=== PATIENT | male | born 1930 | race Caucasian/White ===

== ENCOUNTER 2017-10-27 08:50 | Emergency (ER) | payer MEDICARE, OTHER ==
[2017-10-27 09:30] VITALS: BP 131/66
--- NOTE | 2017-10-27 12:12 | RAD ---
Indication: Cough. 2 views of the chest including dual energy PA views are reviewed and compared to previous exam dated November 07, 2016. No mediastinal shift is noted. Heart is of normal size and configuration. Pacemaker leads are in place. Hyperinflated lung turcios are noted however no pleural fluid, pneumonia or pneumothorax is noted. No significant change is noted since previous exam of November 07, 2016. IMPRESSION: Hyperinflated lung turcios without evidence of active cardiopulmonary disease.
--- NOTE | 2017-10-27 13:40 | UC ---
Estrellita Souza Julia, scribed for Yariel Owens MD on 10/27/17 at 1021 . Respiratory Complaint HPI - HPI Summary HPI Summary: This patient is a 87 year old M presenting to [facility] with a chief complaint of a common cold for the past two weeks that has worsened in the last couple days with a yellowish-green productive cough. Patient c/o chills, without fever. Patient denies CP and SOB. Patient has no other complaints. - History of Current Complaint Chief Complaint: UCRespiratory Stated Complaint: RESP ISSUE Time Seen by Provider: 10/27/17 09:42 Hx Obtained From: Patient Onset/Duration: Lasting Weeks, Worse Since - two days ago Timing: Constant Pain Intensity: 0 Pain Scale Used: 0-10 Numeric Character: Cough: Productive Associated Signs And Symptoms: Positive: Chills. Negative: Fever - Allergies/Home Medications Allergies/Adverse Reactions: Allergies Allergy/AdvReac Type Severity Reaction Status Date / Time Penicillins Allergy Hives Verified 10/27/17 09:30 Home Medications: Home Medications Apixaban* [Eliquis*] 5 mg PO BID 10/27/17 [History Confirmed 10/27/17] PMH/Surg Hx/FS Hx/Imm Hx Cardiovascular History: Cardiac Disease Other History Of: Anticoagulant Therapy - Surgical History Surgical History: Yes Surgery Procedure, Year, and Place: hernia repair, ortho surgery, prostate surgery, pacer, coronary stents - Family History Known Family History: Positive: Hypertension - Social History Alcohol Use: Rare Substance Use Type: None Smoking Status (MU): Former Smoker - Immunization History Most Recent Influenza Vaccination: 2013 Most Recent Tetanus Shot: utd Most Recent Pneumonia Vaccination: unknown Review of Systems Constitutional: Negative - fever, Chills Respiratory: Negative - SOB, Cough Cardiovascular: Negative All Other Systems Reviewed And Are Negative: Yes Physical Exam - Summary Physical Exam Summary: VITAL SIGNS: Reviewed. GENERAL: Patient is a well developed and nourished male who is lying comfortable in the stretcher. Patient is not in any acute respiratory distress. HEAD AND FACE: Normocephalic EYES: PERRLA, EOMI x 2. EARS: Hearing grossly intact. MOUTH: Oropharynx within normal limits. NECK: Supple, trachea is midline, no adenopathy, no JVD, no carotid bruit. CHEST: Symmetric, no tenderness at palpation LUNGS: Coarse breath sounds bilaterally CVS: Regular rate and rhythm, S1 and S2 present, no murmurs or gallops appreciated. ABDOMEN: Soft, non-tender. Bowel sounds are normal. No abdominal abnormal pulsations. EXTREMITIES: Full ROM in all major joints, no edema, no cyanosis or clubbing. NEURO: Alert and oriented x 3. No acute neurological deficits. Speech is normal and follows commands. SKIN: Dry and warm Triage Information Reviewed: Yes Vital Signs: Initial Vital Signs Temp 96.5 F 10/27/17 09:26 Pulse 67 10/27/17 09:26 Resp 20 10/27/17 09:26 BP 131/66 10/27/17 09:26 Pulse Ox 100 10/27/17 09:26 Vital Signs Reviewed: Yes Diagnostic Evaluation - Laboratory O2 Sat by Pulse Oximetry: 100 - Radiology Radiology Interpretation Completed By: ED Physician - CXR - Negative for acute pathology. Respiratory Course/Dx - Course Course Of Treatment: This patient is a 87 year old M presenting to [facility] with a chief complaint of a common cold for the past two weeks that has worsened in the last couple days with a yellowish-green productive cough. Patient c/o chills , without fever. Patient denies CP and SOB. Patient has no other complaints. CXR has no acute pathology. Patient appears to be dealing with bronchitis. Due to age and length of symptoms patient will be placed on Zithromax and Tessalon. Patient will follow up with his PCP.I discussed all the findings and test results with the patient. Plan of care was discussed with the patient, and patient understands and agrees. All questions were answered to patient satisfaction. There were no further complaints or concerns. Patient instructed to return to Urgent Care or ED for worsening or changing symptoms. - Differential Dx/Diagnosis Provider Diagnoses: bronchitis Discharge - Sign-Out/Discharge Documenting (check all that apply): Discharge/Admit/Transfer - Discharge Plan Condition: Stable Disposition: HOME Prescriptions: Azithromyxin ZEN (NF) [Z-Zen (Zithromax) 250 mg tabs #6] 2 tab PO .TODAY, THEN 1 DAILY #6 tab Benzonatate CAP* [Tessalon 100 MG CAP*] 100 mg PO TID #15 cap Patient Education Materials: Acute Bronchitis (ED) Referrals: Monica Inman MD [Primary Care Provider] - Additional Instructions: Take medications as instructed Increase your fluid intake Return to the UC if symptoms worsen - Billing Disposition and Condition Condition: STABLE Disposition: HOME The documentation as recorded by the Estrellita mendoza Julia accurately reflects the service I personally performed and the decisions made by me, Yariel Owens MD.
== END 2017-10-27 10:10 | disposition home or self-care (01) ==
LOC: UCEAST 08:50
DX: J40 Bronchitis, not specified as acute or chronic (principal); Z88.0 Allergy status to penicillin; I51.9 Heart disease, unspecified; Z79.01 Long term (current) use of anticoagulants; Z87.891 Personal history of nicotine dependence
CPT/HCPCS: 71046; 99212; G0463

== ENCOUNTER 2018-02-12 14:54 | Emergency (ER) | payer MEDICARE, OTHER ==
[2018-02-12 15:29] LABS: ABS Basophils 0.1 10^3/ul (0-0.2); ABS Eosinophils 0.1 10^3/ul (0-0.6); ABS Lymphocytes 2.5 10^3/ul (1.0-4.8); ABS Monocytes 0.8 10^3/ul (0-0.8); ABS Neutrophils 4.9 10^3/ul (1.5-7.7); ABS Nucleated RBC 0 10^3/ul; Eosinophil % 1.5 % (0-6); Hematocrit 38 % (42-52); Hemoglobin 13.1 g/dl (14.0-18.0); Lymphocyte % 29.9 % (25-47); Mean Corpuscular HGB Conc 35 g/dl (31-36); Mean Corpuscular Hemoglobin 32 pg (27-31); Mean Corpuscular Volume 92 fL (80-94); Mean Platelet Volume 8.9 um3 (7.4-10.4); Nucleated Red Blood Cells % 0; Platelet Count 204 10^3/ul (150-450); Red Blood Count 4.13 10^6/ul (4.00-5.40); Red Cell Distribution Width 14 % (10.5-15); White Blood Count 8.4 10^3/ul (3.5-10.8)
[2018-02-12 15:37] LABS: INR 1.06 (0.77-1.02)
[2018-02-12 15:46] LABS: EGFR Non-African American 81.2 (>60)
--- OUTSIDE RECORDS SUMMARY | 2018-02-12 15:49 | XMS REPORT ---
:1930 External Reference #:[id number] Author Organization [facility] Address [address] [place] [address] Phone [phone] Care Team Providers Name Role Phone Monica Inman M.D. Primary Care Physician Unavailable Payers Type Date Identification Numbers Payment Provider Subscriber Medicare Primary Policy Number: [id number] Medicare-[facility] Gov[employer] Kwan Guerra PayID: [id number] [address] [facility] [place] [id number] [place] [address] [address] Policy Number: [id number] [facility] [place] Kwan Guerra Group Number: [id number] DO Not Use-Use #36 PayID: [id number] [place] [address] Problems Date Description Provider Status Onset: 03/12/2008 Essential hypertension Joe Rodriguez M.D. Active Family History Date Family Member(s) Problem(s) Comments General Cancer General Hearing Loss General Heart Attack General Heart Disease General Thyroid Disease General Cardiomyopathy General Diabetes Social History Type Date Description Comments Occupation Retired Cigarette Use Never smoked cigarettes Cigars Does not smoke cigars Pipe Does not smoke a pipe Smokeless Tobacco Does not use smokeless tobacco Alcohol Rarely drinks alcohol Smoking Patient has never smoked Allergies, Adverse Reactions, Alerts Date Description Reaction Status Severity Comments 08/01/2004 Penicillin active Medications Medication Date Status Form Strength Qnty SIG Indications Ordering Provider Lipitor Active Tablets 80mg as Unknown 000 directed Proscar Active Tablets 5mg as Unknown 000 directed Diovan Active Tablets as Unknown 000 directed Baby Aspirin Active Chewtabs 81mg as Unknown 000 directed Calcium Active Tablets as Unknown 000 directed Glipizide-Metfo Active Tablets 5-500mg tid Unknown rmin HCL [address] 5mg daily Unknown Sodium 000 Clopidogrel Active Tablets daily Unknown Bisulfate 000 Diltiazem HCL Active Tablets bid Unknown 000 Multiple Active Tablets daily Unknown Vitamins 000 Metamucil Active Powder as Unknown 000 directed Preservision Active Capsules Areds 2 bid Unknown Areds 2 000 Eliquis Active Tablets 5mg bid Unknown 000 Metformin HCL Hx Tablets 1000mg Unknown 000 - 018 Zetia Hx Tablets 10mg Unknown 000 - 018 Nexium Hx Capsules Unknown 000 - DR 018 Vitamin E Hx Liquid Unknown Acetate 000 - 018 Vital Signs Date Vital Result Comment 01/23/2018 Weight 168.00 lb Weight in kg's 76.205 Height 68 inches 5'8" Height in cm's 172.7 cm BMI (Body Mass Index) 25.5 kg/m2 03/12/2008 BP Systolic 148 mmHg BP Diastolic 87 mmHg Heart Rate 45 /min Respiratory Rate 16 /min Results Description No Information Procedures Date CPT Code Description Status 01/23/2018 08123 Removal Wax Impaction Completed 03/12/2008 88438 Removal Wax Impaction Completed 08/01/2004 40430 Comprehensive Audiogram Completed 09/21/2003 16011 Comprehensive Audiogram Completed Encounters Type Date Location Provider CPT E/M Dx Office Visit 03/12/2008 11:30a [place] 06/18/07 Joe Rodriguez, [address] 380.4 [place] 389.10 784.0 401.9 Plan of Care 01/23/2018 - Joe Rodriguez M.D.H61.23 Impacted cerumen, bilateralComments:The patient's cerumen impaction was cleaned without difficulty.Follow up:FU as needed
--- OUTSIDE RECORDS SUMMARY | 2018-02-12 15:49 | XMS REPORT ---
:1930 External Reference #:[id number] Author Organization [facility] [place] Address [address] [place] [address] [place] [address] Phone [phone] Care Team Providers Name Role Phone Monica Inman MD Primary Care Physician Unavailable Payers Type Date Identification Numbers Payment Provider Subscriber Medicare Primary Policy Number: [id number] Medicare Abhilash Guerra PayID: [id number] [address] [place] [address] Medigap Part B Policy Number: [id number] [employer] Abhilash Guerra Group Number: [id number] [address] PayID: [id number] [place] [address] Problems Date Description Provider Status Onset: 05/29/2013 Ischemic heart disease Canelo Goetz M.D., Active FACC, FASNC Onset: 05/19/2014 Postoperative Wound Closure Monty Balderas M.D., FACC, Active Encounter FSCAI Onset: 10/21/2014 Disturbance in sleep behavior Nancy Sididqui MD Active Onset: 10/21/2014 Coronary arteriosclerosis Nancy Siddiqui MD Active Onset: 10/21/2014 Cardiac pacemaker in situ Nancy Siddiqui MD Active Onset: 10/21/2014 Hypoxemia Nancy Siddiqui MD Active Onset: 11/25/2014 Difficulty breathing Nancy Siddiqui MD Active Onset: 01/07/2015 Obstructive sleep apnea syndrome Nancy Siddiqui MD Active Family History Date Family Member(s) Problem(s) Comments General Diabetes General Heart Disease General Hypertension General Cancer Siblings 2 1 Cad 1 05/2016 after head trauma age 74 Social History Type Date Description Comments Marital Status 2016 Lives With Alone Occupation Retired ETOH Use Occasionally consumes alcohol Smoking off and on smoker but never steady for a few years Recreational Drug Use Denies Drug Use Smoking Patient is a former smoker Daily Caffeine 1 1/2 cup of coffee Exercise Type/Frequency Exercises regularly Allergies, Adverse Reactions, Alerts Date Description Reaction Status Severity Comments 05/29/2013 Penicillin rash active 10/08/2014 Erythromycin inactive Medications Medication Date Status Form Strength Qnty SIG Indications Ordering Provider Diltiazem CD 10/08/ Active Caps ER 120mg 180cap 1 by mouth Umberto 2018 24HR s twice a day. Anitha Ortiz M.D. Eliquis 03/01/ Active Tablets 5mg 180tab 1 by mouth I48.0 Umberto 2016 s twice a day Anitha Ortiz M.D. Pantoprazole 09/23/ Active Tablets 20mg 90tabs 1/2 tab by Umberto Sodium 2015 DR mouth every F. day Radha Ortiz Metoprolol 09/07/ Active Tablets 25mg 90tabs 1/2 by mouth Umberto Tartrate 2016 once a day Anitha Ortiz M.D. Magnesium 08/29/ Active Tablets 250mg 90tabs 1 by mouth Umberto Oxide 2014 every day Anitha Ortiz M.D. Glyburide/Metf / Active Tablets 5-500mg 180tab take 1 Unknown ormin HCL 0000 s tablet by mouth three times per day Finasteride / Active Tablets 5mg 90tabs 1 po qd Unknown 0000 Multivitamin / Active 1 tab po qd Unknown 0000 Calcium 600 + / Active Tablets 600-400mg- 60tabs 1 po qd Unknown D 0000 Unit Psyllium / Active Powder 58.6% 3.4 g in a Unknown 0000 glass of water by mouth every day prn Preservision / Active Tablets 1 tab by Unknown Areds 0000 mouth twice daily Clopidogrel / Active Tablets 75mg 90tabs take 1 Umberto Bisulfate 0000 tablet by F. mouth every Mauser, day MStarDStar Atorvastatin / Active Tablets 40mg 45tabs take 1 Umberto Calcium 0000 tablet by F. mouth every Mauser, day MStarSue Metoprolol 10/08/ Hx Tablets 25mg 2 tabs po in Umberto Tartrate 2014 - am 1 tab po 10/08/ in pm , 2014 Radha Metoprolol 10/08/ Hx Tablets 25mg 200tab 1 by mouth Umberto Tartrate 2014 - s twice a day . , 2015 Radha Metoprolol 08/31/ Hx Tablets 25mg 60tabs 1 by mouth Umberto Succinate ER 2014 - ER 24HR twice a day . , 2014 Radha Diovan 05/27/ Hx Tablets 40mg 100tab 1 by mouth Umberto 2013 - s every day . , 2014 Radha Dilt-CD 05/27/ Hx Caps ER 120mg 180cap take 1 Umberto 2013 - 24HR s capsule by . 10/08/ mouth twice , 2017 a day Radha Pantoprazole 05/19/ Hx Tablets 40mg 90tabs 1 by mouth Umberto Sodium 2013 - DR every day , 2015 Radha Isosorbide 12/11/ Hx Tablets 60mg 135tab 1 1/2 tabs Canelo Mononitrate ER 2012 - ER 24HR s by mouth Kareem 05/18/ every day Dasha Goetz M.D., FACC, WAN Metoprolol 08/12/ Hx Tablets 25mg 180tab 2 tabs in Umberto Succinate ER 2012 - ER 24HR s the am and 1 F. 08/31/ tab in the , 2014 pm Radha Diovan 08/12/ Hx Tablets 320mg 90tabs 1 tab by Canelo 2013 - mouth every Serna 05/18/ day Dasha Goetz M.D., FACC, WAN Metformin HCL / Hx Tablets 500mg 1 po bid Unknown 0000 - 2012 Atorvastatin / Hx Tablets 20mg 90tabs take 1 Unknown Calcium 0000 - tablet at 05/18/ bedtime 2013 Zetia / Hx Tablets 10mg 90tabs 1 po qd Unknown 0000 - 2013 Warfarin / Hx Tablets 1mg 60tabs 5 tabs take Unknown Sodium 0000 - as directed 2013 Oxybutynin 00/ Hx Tablets 5mg 1 po qd Unknown Chloride 0000 - 2015 Aspirin Ec / Hx Tablets 81mg 90tabs 1 tablet Unknown Lo-Dose 0000 - DR daily ue 2017 9.14.17 Isosorbide 00/ Hx Tablets 30mg 270tab 1 by mouth Umberto Mononitrate ER 0000 - ER 24HR s every day F. Diana 2014 Radha Diovan / Hx Tablets 1 by mouth Unknown 0000 - every day 2013 Metamucil / Hx daily Unknown 0000 - 2014 Pepcid / Hx Tablets 20mg 90tabs 1 by mouth Unknown 0000 - every day 2013 Yi Herbs / Hx 1 pack a day Unknown 0000 - 2014 Valsartan / Hx Tablets 40mg 1 by mouth Unknown 0000 - every day 2014 Vitamin B-12 / Hx Tablets 500mcg 1 by mouth Unknown 0000 - Sub every day 2016 Medications Administered in Office Medication Date Status Form Strength Qnty SIG Indications Ordering Provider Inj, Administered Injection Lit Rogers Regadenoson, 017 Radha Martinez 0.1 MG Technetium TC Administered Injection Lit Rogers 99M 017 Radha Martinez Tetrofosmin, Per Unit Dose Up To 40 Millicuries Technetium TC Administered Injection Lit Rogers 99M 016 Radha Martinez Tetrofosmin, Per Unit Dose Up To 40 Millicuries Technetium TC Administered Injection Anne Ramirez, 99M 016 PA Tetrofosmin, Per Unit Dose Up To 40 Millicuries Vital Signs Date Vital Result Comment 02/12/2018 Height 68 inches 5'8" Weight 168.00 lb Heart Rate 80 /min BP Systolic Sitting 122 mmHg lue reg cuff BP Diastolic Sitting 60 mmHg lue reg cuff Respiratory Rate 16 /min BMI (Body Mass Index) 25.5 kg/m2 Ejection Fraction 60-65% 11/27/2016 echo 01/01/2018 Height 68 inches 5'8" Weight 163.00 lb Heart Rate 72 /min BP Systolic Sitting 108 mmHg Lue reg cuff BP Diastolic Sitting 66 mmHg Lue reg cuff Respiratory Rate 22 /min O2 % BldC Oximetry 98 % On Ra BMI (Body Mass Index) 24.8 kg/m2 11/06/2017 Height 68 inches 5'8" Weight 166.00 lb Heart Rate 84 /min BP Systolic Sitting 110 mmHg lue reg cuff BP Diastolic Sitting 62 mmHg lue reg cuff BP Systolic Standing 118 mmHg lue reg cuff BP Diastolic Standing 60 mmHg lue reg cuff Respiratory Rate 16 /min BMI (Body Mass Index) 25.2 kg/m2 Ejection Fraction 60-65% 11/27/2016 echo 10/08/2017 Height 68 inches 5'8" Weight 161.00 lb no shoes Heart Rate 88 /min BP Systolic Sitting 120 mmHg L/A Reg cuff BP Diastolic Sitting 70 mmHg L/A Reg cuff BMI (Body Mass Index) 24.5 kg/m2 07/25/2017 Height 68 inches 5'8" Weight 163.00 lb with shoes Heart Rate 80 /min BP Systolic 148 mmHg L/Arm Reg Cuff BP Diastolic 80 mmHg L/Arm Reg Cuff BMI (Body Mass Index) 24.8 kg/m2 Ejection Fraction 60-65%Ech0 03/01/2017 Height 68 inches 5'8" Weight 166.00 lb with shoes Heart Rate 72 /min BP Systolic Sitting 144 mmHg lue reg cuff BP Diastolic Sitting 70 mmHg lue reg cuff BP Systolic Standing 136 mmHg la repeat sitting BP Diastolic Standing 78 mmHg la repeat sitting Respiratory Rate 18 /min BMI (Body Mass Index) 25.2 kg/m2 Ejection Fraction 60-65% echo 11/27/16 12/01/2016 Height 68 inches 5'8" Weight 164.00 lb with shoes Heart Rate 78 /min BP Systolic Sitting 120 mmHg Ra reg cuff BP Diastolic Sitting 76 mmHg Ra reg cuff BMI (Body Mass Index) 24.9 kg/m2 Ejection Fraction 60% - 65% echo 07/30/16 10/23/2016 Height 68 inches 5'8" Weight 167.00 lb with shoes Heart Rate 62 /min BP Systolic Sitting 134 mmHg LA reg cuff BP Diastolic Sitting 72 mmHg LA reg cuff BMI (Body Mass Index) 25.4 kg/m2 Ejection Fraction 55% - 60% echo 04/23/14 10/11/2016 Height 68 inches 5'8" Weight 165.00 lb Heart Rate 63 /min BP Systolic Sitting 130 mmHg BP Diastolic Sitting 72 mmHg Respiratory Rate 14 /min O2 % BldC Oximetry 97 % BMI (Body Mass Index) 25.1 kg/m2 03/08/2016 Height 68 inches 5'8" Weight 169.00 lb w/shoes Heart Rate 62 /min BP Systolic Sitting 138 mmHg LA reg cuff BP Diastolic Sitting 68 mmHg LA reg cuff BMI (Body Mass Index) 25.7 kg/m2 Ejection Fraction 56% Nem 09/24/15 09/28/2015 Height 68 inches 5'8" Weight 173.00 lb with sandals Heart Rate 60 /min BP Systolic 128 mmHg LA reg cuff BP Diastolic 80 mmHg LA reg cuff BP Systolic Sitting 122 mmHg LA reg cuff BP Diastolic Sitting 70 mmHg LA reg cuff Respiratory Rate 16 /min BMI (Body Mass Index) 26.3 kg/m2 Ejection Fraction 55-60% date 04/23/14 ECHO 09/08/2015 Height 68 inches 5'8" Weight 171.00 lb with shoes Heart Rate 62 /min BP Systolic Sitting 128 mmHg LA reg cuff BP Diastolic Sitting 68 mmHg LA reg cuff Respiratory Rate 16 /min BMI (Body Mass Index) 26.0 kg/m2 06/25/2015 Height 68 inches 5'8" Weight 170.00 lb Heart Rate 60 /min BP Systolic Sitting 122 mmHg BP Diastolic Sitting 64 mmHg Respiratory Rate 16 /min O2 % BldC Oximetry 97 % BMI (Body Mass Index) 25.8 kg/m2 03/15/2015 Height 68 inches 5'8" BP Systolic 125 mmHg LA home cuff smart BP Diastolic 78 mmHg LA home cuff smart BP Systolic Sitting 120 mmHg Ra cuff BP Diastolic Sitting 60 mmHg Ra cuff 03/15/2015 Height 68 inches 5'8" Heart Rate 62 /min BP Systolic 120 mmHg LA reg cuff BP Diastolic 60 mmHg LA reg cuff BP Systolic Sitting 130 mmHg LA Omron BP Diastolic Sitting 76 mmHg LA Omron 03/11/2015 Height 68 inches 5'8" Weight 173.00 lb Heart Rate 64 /min BP Systolic Sitting 132 mmHg LA reg cuff BP Diastolic Sitting 68 mmHg LA reg cuff BP Systolic Standing 121 mmHg repeat la BP Diastolic Standing 62 mmHg repeat la BMI (Body Mass Index) 26.3 kg/m2 Ejection Fraction 55 stress echo 07/14/14 03/08/2015 Heart Rate 60 /min BP Systolic Sitting 124 mmHg BP Diastolic Sitting 60 mmHg Respiratory Rate 18 /min O2 % BldC Oximetry 96 % 01/07/2015 Height 68.5 inches 5'8.50" Weight 169.00 lb Heart Rate 62 /min BP Systolic 128 mmHg BP Diastolic 72 mmHg Respiratory Rate 14 /min O2 % BldC Oximetry 98 % BMI (Body Mass Index) 25.3 kg/m2 10/21/2014 Height 68.5 inches 5'8.50" Weight 172.00 lb Heart Rate 61 /min BP Systolic Sitting 120 mmHg BP Diastolic Sitting 74 mmHg Body Temperature 97.2 F O2 % BldC Oximetry 97 % BMI (Body Mass Index) 25.8 kg/m2 Neck Circumference in inches 15 10/08/2014 Height 68.5 inches 5'8.50" Weight 169.75 lb w/o shoes Heart Rate 60 /min BP Systolic Sitting 142 mmHg LA reg cuff BP Diastolic Sitting 70 mmHg LA reg cuff Respiratory Rate 14 /min BMI (Body Mass Index) 25.4 kg/m2 Ejection Fraction 55-60 04/23/14 echo 09/03/2014 Height 68.5 inches 5'8.50" Heart Rate 60 /min BP Systolic Sitting 138 mmHg lA reg cuff BP Diastolic Sitting 78 mmHg lA reg cuff Respiratory Rate 14 /min 08/31/2014 Height 68.5 inches 5'8.50" Weight 174.50 lb Heart Rate 62 /min BP Systolic 140 mmHg LA Reg BP Diastolic 72 mmHg LA Reg BMI (Body Mass Index) 26.1 kg/m2 07/29/2014 Height 68.5 inches 5'8.50" Weight 177.25 lb with shoes Heart Rate 60 /min BP Systolic Sitting 132 mmHg LA reg cuff BP Diastolic Sitting 66 mmHg LA reg cuff BP Systolic Recheck 113 mmHg pt hm bp monitor BP Diastolic Recheck 70 mmHg pt hm bp monitor BMI (Body Mass Index) 26.6 kg/m2 07/14/2014 Heart Rate 60 /min BP Systolic Sitting 134 mmHg BP Diastolic Sitting 82 mmHg 05/27/2014 Height 69 inches 5'9" Weight 179.38 lb Heart Rate 64 /min BP Systolic Standing 138 mmHg LA, reg BP Diastolic Standing 84 mmHg LA, reg BMI (Body Mass Index) 26.5 kg/m2 05/19/2014 Height 69 inches 5'9" Weight 182.00 lb Heart Rate 64 /min 64 BP Systolic Sitting 122 mmHg right arm, reg cuff BP Diastolic Sitting 64 mmHg right arm, reg cuff BP Systolic Standing 116 mmHg right arm, reg cuff BP Diastolic Standing 64 mmHg right arm, reg cuff Respiratory Rate 20 /min BMI (Body Mass Index) 26.9 kg/m2 05/01/2014 Height 69 inches 5'9" Weight 183.75 lb w/shoes Heart Rate 64 /min BP Systolic Sitting 112 mmHg LA reg cuff BP Diastolic Sitting 58 mmHg LA reg cuff Respiratory Rate 12 /min BMI (Body Mass Index) 27.1 kg/m2 05/29/2013 Height 69 inches 5'9" Weight 181.31 lb with shoes Heart Rate 6062 /min sit and stand HR reg cuff BP Systolic Sitting 138 mmHg L arm reg cuff BP Diastolic Sitting 74 mmHg L arm reg cuff BP Systolic Standing 134 mmHg L arm reg cuff BP Diastolic Standing 70 mmHg L arm reg cuff Respiratory Rate 17 /min BMI (Body Mass Index) 26.8 kg/m2 Results Test Date Test Result H/L Range Note CBC Auto Diff 11/06/2017 White Blood Count 6.7 10^3/uL 3.5-10.8 Red Blood Count 4.40 10^6/uL 4.0-5.4 Hemoglobin 13.8 g/dL Low 14.0-18.0 Hematocrit 41 % Low 42-52 Mean Corpuscular Volume 93 fL 80-94 Mean Corpuscular Hemoglobin 31 pg 27-31 Mean Corpuscular HGB Conc 34 g/dL 31-36 Red Cell Distribution Width 14 % 10.5-15 Platelet Count 198 10^3/uL 150-450 Mean Platelet Volume 9.3 um3 7.4-10.4 Abs Neutrophils 3.7 10^3/uL 1.5-7.7 Abs Lymphocytes 2.2 10^3/uL 1.0-4.8 Abs Monocytes 0.7 10^3/uL 0-0.8 Abs Eosinophils 0.1 10^3/uL 0-0.6 Abs Basophils 0 10^3/uL 0-0.2 Abs Nucleated RBC 0 10^3/uL Granulocyte % 54.6 % 38-83 Lymphocyte % 32.5 % 25-47 Monocyte % 10.5 % High 0-7 Eosinophil % 1.7 % 0-6 Basophil % 0.7 % 0-2 Nucleated Red Blood Cells % 0 Lipid Panel - [facility] 11/06/2017 Creatine Kinase(CK) 39 U/L 10-223 Comp Metabolic Panel 11/06/2017 Sodium 139 mmol/L 139-145 Potassium 4.2 mmol/L 3.5-5.0 Chloride 101 mmol/L 101-111 Co2 Carbon Dioxide 29 mmol/L 22-32 Anion Gap 9 mmol/L 2-11 Glucose 136 mg/dL High 70-100 Blood Urea Nitrogen 13 mg/dL 6-24 Creatinine 0.83 mg/dL 0.67-1.17 BUN/Creatinine Ratio 15.7 8-20 Calcium 9.2 mg/dL 8.6-10.3 Total Protein 6.6 g/dL 6.4-8.9 Albumin 4.4 g/dL 3.2-5.2 Globulin 2.2 g/dL 2-4 Albumin/Globulin Ratio 2.0 1-3 Total Bilirubin 0.60 mg/dL 0.2-1.0 Alkaline Phosphatase 60 U/L 34-104 Alt 18 U/L 7-52 Ast 15 U/L 13-39 Egfr Non- 88.1 >60 Egfr 113.2 >60 1 Lipid Profile (Trig/Chol/HDL) 11/06/2017 Triglycerides 144 mg/dL 2 Cholesterol 150 mg/dL 3 HDL Cholesterol 43.4 mg/dL 4 LDL Cholesterol 78 mg/dL 5 Lipid Profile (Trig/Chol/HDL) 03/05/2017 Triglycerides 103 mg/dL 6 Cholesterol 203 mg/dL 7 HDL Cholesterol 58.5 mg/dL 8 LDL Cholesterol 124 mg/dL 9 CBC Auto Diff 03/05/2017 White Blood Count 7.2 10^3/uL 3.5-10.8 Red Blood Count 4.49 10^6/uL 4.0-5.4 Hemoglobin 14.0 g/dL 14.0-18.0 Hematocrit 42 % 42-52 Mean Corpuscular Volume 93 fL 80-94 Mean Corpuscular Hemoglobin 31 pg 27-31 Mean Corpuscular HGB Conc 34 g/dL 31-36 Red Cell Distribution Width 14 % 10.5-15 Platelet Count 167 10^3/uL 150-450 Mean Platelet Volume 9 um3 7.4-10.4 Abs Neutrophils 4.5 10^3/uL 1.5-7.7 Abs Lymphocytes 1.8 10^3/uL 1.0-4.8 Abs Monocytes 0.7 10^3/uL 0-0.8 Abs Eosinophils 0.1 10^3/uL 0-0.6 Abs Basophils 0.1 10^3/uL 0-0.2 Abs Nucleated RBC 0 10^3/uL Granulocyte % 63.2 % 38-83 Lymphocyte % 24.8 % Low 25-47 Monocyte % 9.2 % High 1-9 Eosinophil % 1.9 % 0-6 Basophil % 0.9 % 0-2 Nucleated Red Blood Cells % 0 Laboratory test finding 03/05/2017 Magnesium 1.9 mg/dL 1.9-2.7 Creatine Kinase(CK) 48 U/L 10-223 Comp Metabolic Panel 03/05/2017 Sodium 136 mmol/L 133-145 Potassium 4.4 mmol/L 3.5-5.0 Chloride 97 mmol/L Low 101-111 Co2 Carbon Dioxide 31 mmol/L 22-32 Anion Gap 8 mmol/L 2-11 Glucose 210 mg/dL High 70-100 Blood Urea Nitrogen 18 mg/dL 6-24 Creatinine 0.89 mg/dL 0.67-1.17 BUN/Creatinine Ratio 20.2 High 8-20 Calcium 9.8 mg/dL 8.6-10.3 Total Protein 7.3 g/dL 6.4-8.9 Albumin 4.7 g/dL 3.2-5.2 Globulin 2.6 g/dL 2-4 Albumin/Globulin Ratio 1.8 1-3 Total Bilirubin 0.70 mg/dL 0.2-1.0 Alkaline Phosphatase 60 U/L 34-104 Alt 20 U/L 7-52 Ast 18 U/L 13-39 Egfr Non- 81.4 >60 Egfr 104.7 >60 10 Laboratory test finding 03/05/2017 TSH (Thyroid Stim Horm) 3.83 mcIU/mL 0.34-5.60 Basic Metabolic Panel 12/15/2016 Sodium 136 mmol/L 133-145 Potassium 4.4 mmol/L 3.5-5.0 Chloride 101 mmol/L 101-111 Co2 Carbon Dioxide 26 mmol/L 22-32 Anion Gap 9 mmol/L 2-11 Glucose 99 mg/dL 70-100 Blood Urea Nitrogen 18 mg/dL 6-24 Creatinine 0.84 mg/dL 0.67-1.17 BUN/Creatinine Ratio 21.4 High 8-20 Calcium 9.7 mg/dL 8.6-10.3 Egfr Non- 87.1 >60 Egfr 112.0 >60 11 Liver Function Panel 11/16/2016 Total Protein 6.5 g/dL 6.4-8.9 Albumin 4.0 g/dL 3.2-5.2 Globulin 2.5 g/dL 2-4 Albumin/Globulin Ratio 1.6 1-3 Total Bilirubin 0.70 mg/dL 0.2-1.0 Direct Bilirubin 0.10 mg/dL 0.03-0.18 Indirect Bilirubin 0.6 mg/dL 0.3-1.0 Alkaline Phosphatase 83 U/L 34-104 Alt 17 U/L 7-52 Ast 15 U/L 13-39 Urine Microalbumin Random 11/16/2016 Urine Creatinine 84.70 mg/dL Ur Microalbumin (mg/L) 21.8 mg/L Urine Microalbumin/Creatinine 25.7 ug/mg <31 CBC Auto Diff 11/16/2016 White Blood Count 8.8 10^3/uL 3.5-10.8 Red Blood Count 4.41 10^6/uL 4.0-5.4 Hemoglobin 13.4 g/dL Low 14.0-18.0 Hematocrit 39 % Low 42-52 Mean Corpuscular Volume 89 fL 80-94 Mean Corpuscular Hemoglobin 30 pg 27-31 Mean Corpuscular HGB Conc 34 g/dL 31-36 Red Cell Distribution Width 13 % 10.5-15 Platelet Count 256 10^3/uL 150-450 Mean Platelet Volume 9 um3 7.4-10.4 Abs Neutrophils 5.8 10^3/uL 1.5-7.7 Abs Lymphocytes 2.0 10^3/uL 1.0-4.8 Abs Monocytes 0.7 10^3/uL 0-0.8 Abs Eosinophils 0.2 10^3/uL 0-0.6 Abs Basophils 0.1 10^3/uL 0-0.2 Abs Nucleated RBC 0.02 10^3/uL Granulocyte % 65.8 % 38-83 Lymphocyte % 22.7 % Low 25-47 Monocyte % 7.9 % 1-9 Eosinophil % 2.2 % 0-6 Basophil % 1.4 % 0-2 Nucleated Red Blood Cells % 0.3 Lipid Panel - [facility] 11/16/2016 Creatine Kinase(CK) 31 U/L 10-223 Comp Metabolic Panel 11/16/2016 Sodium 130 mmol/L Low 133-145 Potassium 4.3 mmol/L 3.5-5.0 Chloride 96 mmol/L Low 101-111 Co2 Carbon Dioxide 26 mmol/L 22-32 Anion Gap 8 mmol/L 2-11 Glucose 235 mg/dL High 70-100 Blood Urea Nitrogen 11 mg/dL 6-24 Creatinine 0.79 mg/dL 0.67-1.17 BUN/Creatinine Ratio 13.9 8-20 Calcium 9.4 mg/dL 8.6-10.3 Total Protein 6.5 g/dL 6.4-8.9 Albumin 4.0 g/dL 3.2-5.2 Globulin 2.5 g/dL 2-4 Albumin/Globulin Ratio 1.6 1-3 Total Bilirubin 0.70 mg/dL 0.2-1.0 Alkaline Phosphatase 81 U/L 34-104 Alt 16 U/L 7-52 Ast 14 U/L 13-39 Egfr Non- 93.4 >60 Egfr 120.2 >60 12 Laboratory test finding 11/16/2016 B-Type Natriuretic 143 pg/mL High 13 Peptide BNP Vitamin B12 And Folate 11/16/2016 Vitamin B12 1136 pg/mL High 180-914 14 Serum Folic Acid (Folate) > 20.00 ng/mL >3.99 Laboratory test 11/16/2016 TSH (Thyroid Stim Horm) 3.58 mcIU/mL 0.34- 5.60 finding Lipid Profile 11/16/2016 Triglycerides 123 mg/dL 15 (Trig/Chol/HDL) Cholesterol 152 mg/dL 16 HDL Cholesterol 35.6 mg/dL 17 LDL Cholesterol 92 mg/dL 18 Lipid Panel - [facility] 03/02/2016 Creatine Kinase 40 U/L 10-223 19, 20 Comp Metabolic Panel 03/02/2016 Sodium 137 mmol/L 133-145 19 Potassium 4.2 mmol/L 3.5-5.0 19 Chloride 101 mmol/L 101-111 19 Co2 Carbon Dioxide 30 mmol/L 22-32 19 Anion Gap 6 mmol/L 2-11 19 Glucose 165 mg/dL High 70-100 19 Blood Urea Nitrogen 15 mg/dL 6-24 19 Creatinine 0.84 mg/dL 0.67-1.17 19 BUN/Creatinine Ratio 17.9 8-20 19 Calcium 9.1 mg/dL 8.6-10.3 19 Total Protein 6.4 g/dL 6.4-8.9 19 Albumin 4.1 g/dL 3.2-5.2 19 Globulin 2.3 g/dL 2-4 19 Albumin/Globulin Ratio 1.8 1-3 19 Total Bilirubin 0.50 mg/dL 0.2-1.0 19 Alkaline Phosphatase 74 U/L 34-104 19 Alt 20 U/L 7-52 19 Ast 17 U/L 13-39 19 Egfr Non- 87.3 >60 19 Egfr 112.2 >60 19, 21 Lipid Profile (Trig/Chol/HDL) 03/02/2016 Triglycerides 162 mg/dL 19, 22 Cholesterol 182 mg/dL 19, 23 HDL Cholesterol 46.2 mg/dL 19, 24 LDL Cholesterol 103 mg/dL 19, 25 Laboratory test finding 09/14/2015 B-Type Natriuretic Peptide 98 pg/mL 26 BNP Lipid Panel - [facility] 09/14/2015 Creatine Kinase(CK) 44 U/L 10-223 Comp Metabolic Panel 09/14/2015 Sodium 136 mmol/L 133-145 Potassium 4.2 mmol/L 3.5-5.0 Chloride 100 mmol/L Low 101-111 Co2 Carbon Dioxide 30 mmol/L 22-32 Anion Gap 6 mmol/L 2-11 Glucose 151 mg/dL High 70-100 Blood Urea Nitrogen 15 mg/dL 6-24 Creatinine 0.90 mg/dL 0.67-1.17 BUN/Creatinine Ratio 16.7 8-20 Calcium 9.2 mg/dL 8.6-10.3 Total Protein 6.5 g/dL 6.4-8.9 Albumin 4.4 g/dL 3.2-5.2 Globulin 2.1 g/dL 2-4 Albumin/Globulin Ratio 2.1 1-3 Total Bilirubin 0.50 mg/dL 0.2-1.0 Alkaline Phosphatase 60 U/L 34-104 Alt 16 U/L 7-52 Ast 17 U/L 13-39 Egfr Non- 80.6 >60 Egfr 103.6 >60 27 Lipid Profile (Trig/Chol/HDL) 09/14/2015 Triglycerides 129 mg/dL 28 Cholesterol 177 mg/dL 29 HDL Cholesterol 43.5 mg/dL 30 LDL Cholesterol 108 mg/dL 31 CBC Auto Diff 09/14/2015 White Blood Count 8.1 10^3/uL 3.5-10.8 Red Blood Count 4.26 10^6/uL 4.0-5.4 Hemoglobin 13.4 g/dL Low 14.0-18.0 Hematocrit 39 % Low 42-52 Mean Corpuscular Volume 92 fL 80-94 Mean Corpuscular Hemoglobin 31 pg 27-31 Mean Corpuscular HGB Conc 34 g/dL 31-36 Red Cell Distribution Width 14 % 10.5-15 Platelet Count 174 10^3/uL 150-450 Mean Platelet Volume 10 um3 7.4-10.4 Abs Neutrophils 5.4 10^3/uL 1.5-7.7 Abs Lymphocytes 1.9 10^3/uL 1.0-4.8 Abs Monocytes 0.7 10^3/uL 0-0.8 Abs Eosinophils 0.2 10^3/uL 0-0.6 Abs Basophils 0 10^3/uL 0-0.2 Abs Nucleated RBC 0 10^3/uL Granulocyte % 65.8 % 38-83 Lymphocyte % 23.3 % Low 25-47 Monocyte % 8.5 % 1-9 Eosinophil % 1.9 % 0-6 Basophil % 0.5 % 0-2 Nucleated Red Blood Cells % 0 Laboratory test finding 08/25/2014 Magnesium 1.8 mg/dL Low 1.9-2.7 TSH (Thyroid Stimulating Horm) 3.31 IU/mL 0.34-5.60 CBC Auto Diff 08/25/2014 White Blood Count 7.4 10^3/uL 4.8-10.8 Red Blood Count 4.41 10^6/uL 4.0-5.4 Hemoglobin 14.3 g/dL 14.0-18.0 Hematocrit 41 % Low 42-52 Mean Corpuscular Volume 93 fL 80-94 Mean Corpuscular Hemoglobin 32 pg High 27-31 Mean Corpuscular HGB Conc 35 g/dL 31-36 Red Cell Distribution Width 14 % 10.5-15 Platelet Count 201 10^3/uL 150-450 Mean Platelet Volume 10 um3 7.4-10.4 Abs Neutrophils 4.7 10^3/uL 1.5-7.7 Abs Lymphocytes 1.9 10^3/uL 1.0-4.8 Abs Monocytes 0.6 10^3/uL 0-0.8 Abs Eosinophils 0.1 10^3/uL 0-0.6 Abs Basophils 0.1 10^3/uL 0-0.2 Abs Nucleated RBC 0.01 10^3/uL Granulocyte % 63.4 % 38-83 Lymphocyte % 26.2 % 25-47 Monocyte % 8.3 % 1-9 Eosinophil % 1.4 % 0-6 Basophil % 0.7 % 0-2 Nucleated Red Blood Cells % 0.2 Comp Metabolic Panel 08/25/2014 Sodium 136 mmol/L 133-145 Potassium 4.7 mmol/L 3.5-5.0 Chloride 99 mmol/L Low 101-111 Co2 Carbon Dioxide 31 mmol/L 22-32 Anion Gap 6 mmol/L 2-11 Glucose 211 mg/dL High 70-100 Blood Urea Nitrogen 15 mg/dL 6-24 Creatinine 1.00 mg/dL 0.67-1.17 BUN/Creatinine Ratio 15.0 8-20 Calcium 10.0 mg/dL 8.6-10.3 Total Protein 7.0 g/dL 6.4-8.9 Albumin 4.6 g/dL 3.2-5.2 Globulin 2.4 g/dL 2-4 Albumin/Globulin Ratio 1.9 1-3 Total Bilirubin 0.60 mg/dL 0.2-1.0 Alkaline Phosphatase 73 U/L 34-104 Alt 16 U/L 7-52 Ast 18 U/L 13-39 Egfr Non- 71.5 >60 Egfr 92.0 >60 32 Order 07/14/2014 Stress Test, Exercise <pending> Echocardiogram Lipid Profile 06/26/2014 Triglycerides 152 mg/dL 33 (Trig/Chol/HDL) Cholesterol 181 mg/dL 34 HDL Cholesterol 44.1 mg/dL 35 LDL Cholesterol 107 mg/dL 36 Comp Metabolic Panel 06/26/2014 Sodium 133 mmol/L 133-145 Potassium 4.9 mmol/L 3.5-5.0 Chloride 99 mmol/L Low 101-111 Co2 Carbon Dioxide 28 mmol/L 22-32 Anion Gap 6 mmol/L 2-11 Glucose 185 mg/dL High 70-100 Blood Urea Nitrogen 19 mg/dL 6-24 Creatinine 1.33 mg/dL High 0.67-1.17 BUN/Creatinine Ratio 14.3 8-20 Calcium 9.5 mg/dL 8.6-10.3 Total Protein 7.1 g/dL 6.4-8.9 Albumin 4.8 g/dL 3.2-5.2 Globulin 2.3 g/dL 2-4 Albumin/Globulin Ratio 2.1 1-3 Total Bilirubin 0.80 mg/dL 0.2-1.0 Alkaline Phosphatase 69 U/L 34-104 Alt 21 U/L 7-52 Ast 21 U/L 13-39 Egfr Non- 51.5 >60 Egfr 66.2 >60 37 Lipid Panel - [facility] 06/26/2014 Creatine Kinase 64 U/L 10-223 Laboratory test finding 06/26/2014 B Type Natriuretic 123 pg/mL 38 Peptide CBC Auto Diff 06/26/2014 White Blood Count 5.7 10^3/uL 4.8-10.8 Red Blood Count 4.30 10^6/uL 4.0-5.4 Hemoglobin 13.8 g/dL Low 14.0-18.0 Hematocrit 41 % Low 42-52 Mean Corpuscular Volume 95 fL High 80-94 Mean Corpuscular Hemoglobin 32 pg High 27-31 Mean Corpuscular HGB Conc 34 g/dL 31-36 Red Cell Distribution Width 14 % 10.5-15 Platelet Count 183 10^3/uL 150-450 Mean Platelet Volume 9 um3 7.4-10.4 Abs Neutrophils 3.3 10^3/uL 1.5-7.7 Abs Lymphocytes 1.7 10^3/uL 1.0-4.8 Abs Monocytes 0.5 10^3/uL 0-0.8 Abs Eosinophils 0.1 10^3/uL 0-0.6 Abs Basophils 0 10^3/uL 0-0.2 Abs Nucleated RBC 0.02 10^3/uL Granulocyte % 57.7 % 38-83 Lymphocyte % 30.2 % 25-47 Monocyte % 9.4 % High 1-9 Eosinophil % 2.0 % 0-6 Basophil % 0.7 % 0-2 Nucleated Red Blood Cells % 0.4 Surgical Pathology 09/05/2007 Surgical Pathology <SEE NOTE > 39 Type And Screen 08/30/2007 Patient Blood Type A POSITIVE Antibody Screen NEGATIVE Specimen Discard Date 09/13/07 40 CBC With Electronic Diff 08/30/2007 White Blood Count 8.7 CUMM 4.8-10.8 Abs Basophils 0 0-0.2 Abs Eosinophils 0.2 0-0.6 Absolute Neutrophil Count 5.1 1.5-7.7 Abs Lymphs 2.7 1.0-4.8 Abs Mononuclear 0.7 0-0.8 Basophil % 0.5 % 0-2 Hematocrit 39 % Low 42-52 Hemoglobin 13.4 g/dL Low 14.0-18.0 Eosinophil % 2.3 % 0-6 Gran % 58.2 % 38-83 Lymph % 30.5 % 20-45 Mean Corpuscular HGB Cone 35 g/dL 32-36 Mean Corpuscular Hemoglob 31 pg 27-31 Mean Corpuscular Volume 90 um3 80-94 Mean Platelet Volume 9.2 um3 7.4-10.4 Mononuclear % 8.5 % 1-9 Platelet Count 223 CUMM 150-450 Red Cell Count 4.33 CUMM Low 4.6-6.2 Redcell Distribution WDTH 13 % 10.5-15 Basic Metabolic Panel 08/30/2007 One Over Creatinine 0.83 Anion Gap 2.0 mmol/L 2-11 41 BUN 17 mg/dL 6-24 Calcium 9.2 mg/dL 8.7-10.2 Chloride 101 mmol/L 101-111 Co2 (Carbon Dioxide) 30.0 mmol/L 22-32 Glucose 174 mg/dL High 70-105 Potassium 4.8 mmol/L 3.5-5.0 Sodium 133 mmol/L Low 135-145 BUN/Creatinine Ratio 14.2 8-20 Creatinine 1.2 mg/dL 0.5-1.4 1 Because ethnic data is not always readily available, this report includes an eGFR for both -Americans and non- Americans. The National Kidney Disease Education Program (NKDEP) does not endorse the use of the MDRD equation for patients that are not between the ages of 18 and 70, are , have extremes of body size, muscle mass, or nutritional status, or are non- or non-. According to the National Kidney Foundation, irrespective of diagnosis, the stage of the disease is based on the level of kidney function: Stage Description GFR(mL/min/1.73 m(2)) 1 Kidney damage with normal or decreased GFR 90 2 Kidney damage with mild decrease in GFR 60-89 3 Moderate decrease in GFR 30-59 4 Severe decrease in GFR 15-29 5 Kidney failure <15 (or dialysis) 2 Desirable: <150 Borderline High: 150-199 High: 200-499 Very High: >500 3 Desirable: <200 Borderline High: 200-239 High: >239 4 Low: <40 Desirable: 40-60 High: >60 5 Desirable: <100 Near Optimal: 100-129 Borderline High: 130-159 High: 160-189 Very High: >189 6 Desirable <150 Borderline high 150-199 High 200-499 Very High >500 7 Desirable <200 Borderline high 200-239 High >239 8 Low <40 Desirable: 40-60 High: >60 9 Desirable: <100 mg/dL Near Optimal: 100-129 mg/dL Borderline High: 130-159 mg/dL High: 160-189 mg/dL Very High: >189 mg/dL 10 Because ethnic data is not always readily available, this report includes an eGFR for both -Americans and non- Americans. The National Kidney Disease Education Program (NKDEP) does not endorse the use of the MDRD equation for patients that are not between the ages of 18 and 70, are , have extremes of body size, muscle mass, or nutritional status, or are non- or non-. According to the National Kidney Foundation, irrespective of diagnosis, the stage of the disease is based on the level of kidney function: Stage Description GFR(mL/min/1.73 m(2)) 1 Kidney damage with normal or decreased GFR 90 2 Kidney damage with mild decrease in GFR 60-89 3 Moderate decrease in GFR 30-59 4 Severe decrease in GFR 15-29 5 Kidney failure <15 (or dialysis) 11 Because ethnic data is not always readily available, this report includes an eGFR for both -Americans and non- Americans. The National Kidney Disease Education Program (NKDEP) does not endorse the use of the MDRD equation for patients that are not between the ages of 18 and 70, are , have extremes of body size, muscle mass, or nutritional status, or are non- or non-. According to the National Kidney Foundation, irrespective of diagnosis, the stage of the disease is based on the level of kidney function: Stage Description GFR(mL/min/1.73 m(2)) 1 Kidney damage with normal or decreased GFR 90 2 Kidney damage with mild decrease in GFR 60-89 3 Moderate decrease in GFR 30-59 4 Severe decrease in GFR 15-29 5 Kidney failure <15 (or dialysis) 12 Because ethnic data is not always readily available, this report includes an eGFR for both -Americans and non- Americans. The National Kidney Disease Education Program (NKDEP) does not endorse the use of the MDRD equation for patients that are not between the ages of 18 and 70, are , have extremes of body size, muscle mass, or nutritional status, or are non- or non-. According to the National Kidney Foundation, irrespective of diagnosis, the stage of the disease is based on the level of kidney function: Stage Description GFR(mL/min/1.73 m(2)) 1 Kidney damage with normal or decreased GFR 90 2 Kidney damage with mild decrease in GFR 60-89 3 Moderate decrease in GFR 30-59 4 Severe decrease in GFR 15-29 5 Kidney failure <15 (or dialysis) 13 >100 to <200 pg/mL: likely compensated congestive heart failure (CHF) 200 to 400 pg/mL: likely moderate CHF >400 pg/mL: likely moderate to severe CHF 14 Normal Range 180 to 914 Indeterminate Range 145 to 180 Deficient Range <145 15 Desirable <150 Borderline high 150-199 High 200-499 Very High >500 16 Desirable <200 Borderline high 200-239 High >239 17 Low <40 Desirable: 40-60 High: >60 18 Desirable: <100 mg/dL Near Optimal: 100-129 mg/dL Borderline High: 130-159 mg/dL High: 160-189 mg/dL Very High: >189 mg/dL 19 [id number] 21 Because ethnic data is not always readily available, this report includes an eGFR for both -Americans and non- Americans. The National Kidney Disease Education Program (NKDEP) does not endorse the use of the MDRD equation for patients that are not between the ages of 18 and 70, are , have extremes of body size, muscle mass, or nutritional status, or are non- or non-. According to the National Kidney Foundation, irrespective of diagnosis, the stage of the disease is based on the level of kidney function: Stage Description GFR(mL/min/1.73 m(2)) 1 Kidney damage with normal or decreased GFR 90 2 Kidney damage with mild decrease in GFR 60-89 3 Moderate decrease in GFR 30-59 4 Severe decrease in GFR 15-29 5 Kidney failure <15 (or dialysis) 22 Desirable <150 Borderline high 150-199 High 200-499 Very High >500 23 Desirable <200 Borderline high 200-239 High >239 24 Low <40 Desirable: 40-60 High: >60 25 Desirable: <100 mg/dL Near Optimal: 100-129 mg/dL Borderline High: 130-159 mg/dL High: 160-189 mg/dL Very High: >189 mg/dL 26 >100 to <200 pg/mL: likely compensated congestive heart failure (CHF) 200 to 400 pg/mL: likely moderate CHF >400 pg/mL: likely moderate to severe CHF 27 Because ethnic data is not always readily available, this report includes an eGFR for both -Americans and non- Americans. The National Kidney Disease Education Program (NKDEP) does not endorse the use of the MDRD equation for patients that are not between the ages of 18 and 70, are , have extremes of body size, muscle mass, or nutritional status, or are non- or non-. According to the National Kidney Foundation, irrespective of diagnosis, the stage of the disease is based on the level of kidney function: Stage Description GFR(mL/min/1.73 m(2)) 1 Kidney damage with normal or decreased GFR 90 2 Kidney damage with mild decrease in GFR 60-89 3 Moderate decrease in GFR 30-59 4 Severe decrease in GFR 15-29 5 Kidney failure <15 (or dialysis) 28 Desirable <150 Borderline high 150-199 High 200-499 Very High >500 29 Desirable <200 Borderline high 200-239 High >239 30 Low <40 Desirable: 40-60 High: >60 31 Desirable: <100 mg/dL Near Optimal: 100-129 mg/dL Borderline High: 130-159 mg/dL High: 160-189 mg/dL Very High: >189 mg/dL 32 Because ethnic data is not always readily available, this report includes an eGFR for both -Americans and non- Americans. The National Kidney Disease Education Program (NKDEP) does not endorse the use of the MDRD equation for patients that are not between the ages of 18 and 70, are , have extremes of body size, muscle mass, or nutritional status, or are non- or non-. According to the National Kidney Foundation, irrespective of diagnosis, the stage of the disease is based on the level of kidney function: Stage Description GFR(mL/min/1.73 m(2)) 1 Kidney damage with normal or decreased GFR 90 2 Kidney damage with mild decrease in GFR 60-89 3 Moderate decrease in GFR 30-59 4 Severe decrease in GFR 15-29 5 Kidney failure <15 (or dialysis) 33 Desirable <150 Borderline high 150-199 High 200-499 Very High >500 34 Desirable <200 Borderline high 200-239 High >239 35 Low <40 Desirable: 40-60 High: >60 36 Desirable <100 Near Optimal 100-129 Borderline high 130-159 High 160-189 Very High >189 37 Because ethnic data is not always readily available, this report includes an eGFR for both -Americans and non- Americans. The National Kidney Disease Education Program (NKDEP) does not endorse the use of the MDRD equation for patients that are not between the ages of 18 and 70, are , have extremes of body size, muscle mass, or nutritional status, or are non- or non-. According to the National Kidney Foundation, irrespective of diagnosis, the stage of the disease is based on the level of kidney function: Stage Description GFR(mL/min/1.73 m(2)) 1 Kidney damage with normal or decreased GFR 90 2 Kidney damage with mild decrease in GFR 60-89 3 Moderate decrease in GFR 30-59 4 Severe decrease in GFR 15-29 5 Kidney failure <15 (or dialysis) 38 >100 to <200 pg/mL: likely compensated congestive heart failure (CHF) 200 to 400 pg/mL: likely moderate CHF >400 pg/mL: likely moderate to severe CHF [facility] 39 ---- RUN DATE: 09/06/07 [facility] NMI LIVE PAGE 1 RUN TIME: 1617 Specimen Inquiry RUN USER: INTERFACE [id number] ABHILASH GUERRA 77/M <[place] [facility] [place] ([id number]) DAYANA Ramirez MD,Rohan De Jesus -- Specimen: [id number] SOUT Spec Date: 09/05/[address]: Rohan fajardo MD Spec Type: SURGICAL P Received: 09/05/07-1241 Copies to: SPECIMEN 1) CYST FROM LUMBAR SKIN 2) L5-S1 RIGHT DISC TISSUE HISTORY CLINICAL INFORMATION: No history given GROSS DESCRIPTION 1) The specimen is received in formalin labelled Abhilash Guerra, Cyst Lumbar Skin, and consists of a witt, mucosal fragment measuring 1.2 x 0.8 x 0.4 cm. Submitted entirely, one cassette. 2) The specimen is received in formalin labelled Abhilash Guerra, L5-S1 Disc Tissue, and consists of multiple, witt-adams, fibrous, soft tissue fragments measuring 3.2 x 2.0 x 0.8 cm. in aggregate. Fender Repairer section, one cassette. DIAGNOSIS 1) Skin, lumbar, excision - Cicatrix. 2) Intervertebral disc, L5-S1, discectomy - Intervertebral disc material with degenerative features. Signed Electronically by: BRANT JONES MD 09/06/07 1616 -- -- DEPARTMENT OF PATHOLOGY, [address] [place] [address] [facility] Permit #[id number] Brant Jones M.D. Director of Laboratories -- 40 PREADMISSION TESTING SAMPLES FOR BLOOD BANK WILL BE HELD FOR 14 DAYS FROM THE DATE OF COLLECTION *IF* THE FOLLOWING CRITERIA ARE MET: 1) THE PATIENT HAS *NOT* BEEN IN THE LAST 3 MONTHS. 2) THE PATIENT HAS *NOT* BEEN TRANSFUSED IN THE LAST 3 MONTHS. PREADMISSION TESTING SAMPLES WILL *NOT* BE HELD FOR 14 DAYS FROM PATIENTS WHO IN THE LAST 3 MONTHS: 1) HAVE BEEN 2) HAVE BEEN TRANSFUSED THESE PATIENTS *MUST* BE COLLECTED WITHIN 3 DAYS OF THE SURGERY DATE. 41 Anion gap measurement may be of limited value in the presence of any alkalosis, especially in a combined acid base disorder. . Procedures Date CPT Code Description Status 02/12/2018 81987 EKG Tracing & Interpretation Completed 01/22/2018 83053 Interrogation Device Eval In Person TOREY Completed Analysis,Single,Dual,Mul 01/22/2018 92757 Interrogation Device Eval In Person TOREY Completed Analysis,Single,Dual,Mul 12/25/2017 17320 Interrogation Device Eval In Person TOREY Completed Analysis,Single,Dual,Mul 12/25/2017 77232 Interrogation Device Eval In Person W/DR Completed Analysis,Single,Dual,Mul 11/21/2017 33948 Pace Maker Eval W/Iterative Adjment Dual Lead Completed 11/21/2017 39624 Pace Maker Eval W/Iterative Adjment Dual Lead Completed 11/06/2017 65430 EKG Tracing & Interpretation Completed 10/08/2017 50220 Pace Maker Eval W/Iterative Adjment Dual Lead Completed 10/08/2017 30164 Pace Maker Eval W/Iterative Adjment Dual Lead Completed 10/08/2017 62997 EKG Tracing & Interpretation Completed 07/25/2017 12802 EKG Tracing & Interpretation Completed 03/02/2017 58202 Pace Maker Eval W/Iterative Adjment Dual Lead Completed 03/01/2017 64007 EKG Tracing & Interpretation Completed 02/27/2017 62147 Pace Maker Eval W/Iterative Adjment Dual Lead Completed 11/27/2016 44645 ECHO Transthoracic, Real-Time 2D With Doppler And Color Completed Flow 11/02/2016 53258 Stress Test Completed 11/02/2016 83091 Myocardial Perfusion Imaging Tomographic (Spect) Completed Multiple Studies 10/23/2016 98092 ECHO Transthorasic Realtime 2D W Doppler & Color Flow Completed Hosp 10/23/2016 37874 EKG Tracing & Interpretation Completed 10/13/2016 84036 Pace Maker Eval W/Iterative Adjment Dual Lead Completed 03/08/2016 21846 EKG Tracing & Interpretation Completed 03/08/2016 75498 EKG Tracing & Interpretation Completed 03/01/2016 61428 Pace Maker Eval W/Iterative Adjment Dual Lead Completed 09/27/2015 81762 Interrogation Device Eval In Person W/DR Completed Analysis,Single,Dual,Mul 09/24/2015 92400 Stress Test Completed 09/24/2015 50914 Myocardial Perfusion Imaging Tomographic (Spect) Completed Multiple Studies 09/24/2015 11453 Myocardial Perfusion Imaging Tomographic (Spect) Completed Multiple Studies 09/08/2015 65234 EKG Tracing & Interpretation Completed 03/17/2015 06205 Interrogation Device Eval In Person W/DR Completed Analysis,Single,Dual,Mul 03/11/2015 53714 EKG Tracing & Interpretation Completed 02/14/2015 39279 Polysomnography Sleep Staging 4+ Parameters W/Cpap Completed 11/25/2014 49290 Polysomnography Sleep Staging 4+ Parameters Completed 10/08/2014 11057 Pace Maker Eval W/Iterative Adjment Dual Lead Completed 10/08/2014 51459 EKG Tracing & Interpretation Completed 09/04/2014 84507 Interrogation Device Eval In Person W/DR Completed Analysis,Single,Dual,Mul 09/03/2014 13809 Pace Maker Eval W/Iterative Adjment Dual Lead Completed 08/31/2014 75061 EKG Tracing & Interpretation Completed 08/26/2014 22785 Pace Maker Eval W/Iterative Adjment Dual Lead Completed 07/29/2014 73521 EKG Tracing & Interpretation Completed 07/14/2014 98430 ECHO Stress Test Incl Perf Contiuous ekg Monitoring Completed W/Phys Superv 05/27/2014 03289 EKG Tracing & Interpretation Completed 05/15/2014 58301 Percutaneous Transcatheter Placement Of Intracoronary Completed Stent 05/15/2014 64180 EKG, Interpretation Only Completed 05/15/2014 14378 Stress Test Supervsn W/Out I/R Completed 05/15/2014 04169 Treadmill Interp/Report Only Completed 05/15/2014 89204 Left Heart Cath. Incl S/I Coronaries, Angio S/I V Gram Completed If Done 05/01/2014 67531 EKG Tracing & Interpretation Completed 04/23/2014 31089 ECHO Transthoracic, Real-Time 2D With Doppler And Color Completed Flow 04/01/2014 62942 Pace Maker Eval W/Iterative Adjment Dual Lead Completed 09/30/2013 73230 Pace Maker Eval W/Iterative Adjment Dual Lead Completed 05/27/2013 71045 ECHO Transthoracic, Real-Time 2D With Doppler And Color Completed Flow 04/01/2013 14532 Pace Maker Eval W/Iterative Adjment Dual Lead Completed 09/06/2012 75465 Pace Maker Eval W/Iterative Adjment Dual Lead Completed 07/18/2012 17729 EKG Tracing & Interpretation Completed 02/18/2012 29666 EKG, Interpretation Only Completed 10/21/2009 49448 Rad Exam; Both Knees, Standing Ap Completed 09/05/2007 00906 Laminotomy W/Decomp NRV RT,One Interspace,Lumbar Completed 09/05/2007 45551 Laminotomy W/Decomp NRV RT,One Interspace,Lumbar Completed Encounters Type Date Location Provider CPT E/M Dx Office Visit 01/01/2018 Pulmonology And Sleep Ashwini Encarnacion, 95078 G47.33 10:30a [facility] JOSE VARGHESE, KELI R53.83 Office Visit 11/06/2017 9:30a [facility] Umberto Ortiz, 10154 I49.5 [facility] M.D. I48.2 I25.10 I34.0 I10 E78.00 Office Visit 10/08/2017 2:00p [facility] Umberto Ortiz, 54952 I48.2 [facility] M.D. I25.10 I34.0 Z95.0 I10 E78.00 Office Visit 07/25/2017 9:00a [facility] Christy Lara N.P. 24146 I49.5 I48.0 I25.10 I34.0 I10 Office Visit 03/01/2017 9:40a [facility] Umberto Ortiz, 30821 R06.00 M.D. I25.10 I34.0 I48.0 I49.5 I10 I48.2 Z95.0 R94.31 Office Visit 12/01/2016 11:00a [facility] TERESA Cardoza 11944 R06.00 Z95.0 I25.10 E78.5 E87.1 Office Visit 10/23/2016 10:20a [facility] Umberto Ortiz M.D. 21407 Z95.0 I49.5 G47.33 I25.10 R06.00 Office Visit 10/11/2016 9:30a Pulmonology And Ashwini Encarnacion, 74749 G47.33 Sleep Services Of JOSE VARGHESE, KELI [facility] Office Visit 03/08/2016 9:30a [facility] TERESA Cardoza 59322RDH Z95.0 E78.5 I25.10 Office Visit 09/28/2015 10:30a [facility] TERESA Cardoza 65377BXF I25.9 I11.9 Z95.0 I25.10 E78.5 Office Visit 09/08/2015 1:40p [facility] Umberto Ortiz, 08027 G47.33 M.D. I49.5 I25.9 I11.9 R06.00 R60.0 Office Visit 06/25/2015 3:00p [facility]ology [facility] Sleep Ashwini Encarnacion, 80577 G47.33 [facility] HALIMA, RN, BAKERY CLERK- Office Visit 03/15/2015 11:30a [facility] Nurse Visit 01498 414.9 427.81 Office Visit 03/11/2015 9:00a [facility] Umberto Ortiz, 96619 G47.33 M.D. I25.10 I49.5 I11.9 Office Visit 03/08/2015 2:30p [facility] [place] [address] G47.33 [facility] Office Visit 01/07/2015 10:15a [facility] [place] [address] 327.23 [facility] Office Visit 10/21/2014 8:45a [facility] [place] [address] 780.50 [facility] 414.01 V45.01 799.02 Office Visit 10/08/2014 1:00p [facility] Umberto Ortiz M.D. 88224 785.2 427.81 785.1 401.1 414.01 Office Visit 09/03/2014 12:00p [facility] Umberto Ortiz 72537 427.81 M.D. 414.01 411.89 785.1 Office Visit 08/31/2014 2:40p [facility] Umberto Ortiz 07618 427.81 M.D. V45.01 401.1 411.89 307.49 Office Visit 07/29/2014 10:00a [facility] Umberto Ortiz 23764 414.01 M.D. 786.50 401.1 272.4 Office Visit 07/14/2014 9:30a [facility] Umberto Ortiz 44159 414.01 M.D. 272.4 401.1 Office Visit 05/27/2014 10:40a [facility] Umberto Ortiz 13483 786.50 M.D. 786.59 250.00 414.01 Office Visit 05/19/2014 4:00p [facility] Of Monty Balderas M.D., 13508 V58.41 Outreach Director AT [facility], [facility] Office Visit 05/16/2014 1:54p [facility] Himanshu 75413 786.50 Hospitalists Radha Bai 414.9 272.4 250.00 Office Visit 05/15/2014 1:54p [facility] Myriam Cuevas, 67642 786.50 Hospitalists MStarDStar 414.9 Office Visit 05/14/2014 1:54p [facility] Myriam Cuevas, 41156 786.50 Hospitalists MShira 414.9 Office Visit 05/01/2014 10:45a [facility] Canelo Kareem Goetz, 36092 411.89 Radha, [facility], [facility] Office Visit 05/29/2013 8:30a [facility] Of Canelo Kareem Goetz, 20949 411.89 Glo Garcia, [facility], [facility] Office Visit 02/05/2013 12:41p [facility] Danna Laughlin, 36406 682.6 Hospitalists D.O. 338.11 414.01 427.32 Office Visit 02/04/2013 12:41p [facility] Cinthia Womack, 47260 682.6 Hospitalists M.D. 338.11 414.01 427.32 Office Visit 12/09/2012 10:15a [facility] Of Canelo Kareem Goetz, 04438 414.9 Glo Garcia, [facility], [facility] Office Visit 07/18/2012 10:30a [facility] Of Canelo Kareem Goetz, 20595 414.9 Glo Garcia, [facility], [facility] Office Visit 02/19/2012 12:59p [facility] Umberto Ortiz, 73518 411.89 MShira 414.01 401.0 427.32 427.81 Office Visit 02/18/2012 12:53p [facility] Umberto Ortiz, 98141 414.01 M.DStar 401.0 427.32 Office Visit 10/21/2009 9:00a [place] [address] 716.96 C.M.AStar Office Visit 02/10/2008 10:20a [facility] Of Rohan Ramirez, 13677 784.0 Glo Garcia 348.8 Office Visit 08/15/2007 2:15p [facility] Rohan Ramirez, 73516 722.10 Of Glo Garcia Office Visit 07/19/2007 1:00p Neurosurgery Services Rohan Ramirez, 88654 722.10 Of Glo Garcia Plan of Care Future Appointment(s):02/15/2018 9:30 am - Lit Martinez M.D. at [facility]03/07/2018 2:40 pm - Pacemaker Schedule at [facility] 8:30 am - Ashwini Encarnacion DNP, RN, BAKERY CLERK-BC at [facility]02/12/2018 - Carmen LePStarI25.119 Athscl heart disease of chipewwa cor art w unsp ang pctrsFollow up:f/u pending clincial course.Recommendations:I am concered that symptoms you are having mean you ave new blockages I'd like for you to be evaluated in the ER to be rule out for acute UT. They may want to keep you to have a stress test as well.I10 Essential (primary) mbrwojlkpqkpB22.2 Chronic atrial lhzsrwzsjqxrJ41.00 Pure hypercholesterolemia, ebbhvxqxumsI71.5 Sick sinus syndrome
--- OUTSIDE RECORDS SUMMARY | 2018-02-12 15:49 | XMS REPORT ---
:1930 External Reference #:[id number] Author Organization [facility] Address [address] [place] [address] Phone [phone] Care Team Providers Name Role Phone Monica Inman M.D. Primary Care Physician Unavailable Payers Type Date Identification Numbers Payment Provider Subscriber Medicare Primary Policy Number: [id number] Medicare-[facility] [employer] [facility] Kwan Guerra PayID: [id number] [facility] [place] [id number] [place] [address] Part B Policy Number: [id number] [facility] Kwan Guerra Group Number: [id number] DO Not Use-Use #36 PayID: [id number] [place] [address] Problems Date Description Provider Status Onset: 03/12/2008 Essential hypertension Joe Rodriguez M.D. Active Family History Date Family Member(s) Problem(s) Comments General Cancer General Hearing Loss General Heart Attack General Heart Disease General Thyroid Disease General Cardiomyopathy General Diabetes Social History Type Date Description Comments Occupation Retired Cigarette Use Never Smoked Cigarettes Cigars Never Smoked Cigars Pipe Never Smoked A Pipe Smokeless Tobacco Never Used Smokeless Tobacco ETOH Use Currently rarely consumes alcohol Smoking Patient has never smoked Allergies, [...] 018 Vital Signs Date Vital Result Comment 02/05/2018 Weight 168.00 lb Weight in kg's 76.205 Height 68 inches 5'8" Height in cm's 172.7 cm BMI (Body Mass Index) 25.5 kg/m2 01/23/2018 Weight 168.00 lb Weight in kg's 76.205 Height 68 inches 5'8" Height in cm's 172.7 cm BMI (Body Mass Index) 25.5 kg/m2 03/12/2008 BP Systolic 148 mmHg BP Diastolic 87 mmHg Heart Rate 45 /min Respiratory Rate 16 /min Results Description No Information Procedures Date CPT Code Description Status 02/05/2018 31729 Tympanometry Completed 02/05/2018 93825 Comprehensive Audiogram Completed 01/23/2018 38382 Removal Wax Impaction Completed 03/12/2008 98842 Removal Wax Impaction Completed 08/01/2004 89186 Comprehensive Audiogram Completed 09/21/2003 62892 Comprehensive Audiogram Completed Encounters Type Date Location Provider CPT E/M Dx Office Visit 02/05/2018 9:30a [place] 06/18/07 Joe Rodriguez [id number] H90.5 M.D. Office Visit 03/12/2008 11:30a [place],After 06/18/07 Joe Rodriguez [id number] 380.4 M.D. 389.10 784.0 401.9 Plan of Care 02/05/2018 - Joe Rodriguez M.D.H90.5 Unspecified sensorineural hearing lossComments:The patient has progressive sensorineural hearing loss. There also seems to be a small conductive component in the left ear. He may have a small effusion in that ear. It is a small component to his hearing loss. The primary loss is the age related sensorineural loss.He is trialing new hearing aids The problem is he is getting at the limit of conventional hearing aids. We discussed getting blue tooth compatible hearing aids that he could then use with a microphone or hearing aid MARIN on a smart phone to help in lectures, mandaeism, etc. Many places, like theaters, have Infrared listening systems, where he can borrow the headphones. He could also look into an implantable hearing aid.
--- NOTE | 2018-02-12 15:54 | RAD ---
INDICATION: Shortness of breath. Dizziness. Former tobacco use. Cardiac disease. COMPARISON: October 27, 2017 TECHNIQUE: Dual energy PA and routine lateral views of the chest were obtained. REPORT: Elevated lung volumes. No focal pulmonary lesion, compelling alveolar consolidation, pleural effusion, pneumothorax. Negative for cardiomegaly. Coronary artery stents noted. RIGHT atrial and RIGHT ventricular level pacemaker leads. Unremarkable soft tissue contours and osseous structures for age. IMPRESSION: #. No evidence for acute intrathoracic disease. #. Stigmata of probable chronic obstructive pulmonary disease.
[2018-02-12] MEDS ORDERED: NS 0.9% 1000 ML* 1,000 ML IV ONE (16:01)
[2018-02-12] MEDS: Albuterol/Ipratropium NEB.SOL* Albuterol 2.5 MG/Ipratropium 0.5 MG 3 ML INH ONE ×2 (16:08→16:36)
[2018-02-12 17:14] VITALS: BP 159/70
--- NOTE | 2018-02-12 17:59 | ED ---
Shortness of Breath - HPI Summary HPI Summary: Patient is a 87 y/o M w/ c/o SOB with exertion alongside dizziness and "not feeling normal" onsetting a few weeks ago. Patient denies pain, FENT[place], N/V. He states he saw his PCP and was sent here to get tested. Patient denies chest pain but reports chest tightness, palpations occasionally and notes chronic cough. He denies fever and states he might have gained a little weight recently. Patient reports sleeping a lot and feeling fatigued often. Normal urination is reported. HTN denied, reports diabetes along prostate problems. He denies Hx of lung problems and OR. Patient has cardiac stents, never had angina. Patient is on eliquis. - History of Current Complaint Chief Complaint: EDShortnessOfBreath Time Seen by Provider: 02/12/18 15:06 Hx Obtained From: Patient Onset/Duration: Lasting Weeks - onset a few weeks ago Current Severity: None - pain is denied Aggrevating Factors: Other - exertion worsens SOB Alleviating Factors: Nothing - Allergy/Home Medications Allergies/Adverse Reactions: Allergies Allergy/AdvReac Type Severity Reaction Status Date / Time Penicillins Allergy Hives Verified 02/12/18 15:59 PMH/Surg Hx/FS Hx/Imm Hx Endocrine/Hematology History: Reports: Hx Anticoagulant Therapy Denies: Hx Diabetes, Hx Systemic Lupus Erythematosus, Hx Thyroid Disease Cardiovascular History: Reports: Hx Angina, Hx Coronary Artery Disease, Hx Hypercholesterolemia, Hx Hypertension - ON MEDS, Hx Pacemaker/ICD, Other Cardiovascular Problems/Disorders - afib/flutter Denies: Hx Myocardial Infarction, Hx Valvular Heart Disease Respiratory History: Reports: Hx Sleep Apnea - POSSIBLE, HIS THINKS SO Denies: Hx Asthma, Hx Chronic Obstructive Pulmonary Disease (COPD) GI History: Reports: Hx Gastroesophageal Reflux Disease, Other GI Disorders - partial small bowel resection Denies: Hx Ulcer History: Reports: Hx Benign Prostatic Hyperplasia Denies: Hx Dialysis, Hx Renal Disease Musculoskeletal History: Reports: Hx Arthritis, Hx Back Problems Denies: Hx Rheumatoid Arthritis Sensory History: Reports: Hx Contacts or Glasses, Hx Hearing Aid Opthamlomology History: Reports: Hx Contacts or Glasses - Cancer History Hx Chemotherapy: No - Surgical History Surgery Procedure, Year, and Place: hernia repair, ortho surgery, prostate surgery, pacer, coronary stents Hx Anesthesia Reactions: No Infectious Disease History: No Infectious Disease History: Denies: Hx Clostridium Difficile, Hx Hepatitis, Hx Human Immunodeficiency Virus (HIV), Hx of Known/Suspected MRSA, Hx Shingles, Hx Tuberculosis, Hx Known/ Suspected VRE, Hx Known/Suspected VRSA, History Other Infectious Disease, Traveled Outside the [place] in Last 30 Days - Family History Known Family History: Positive: Hypertension - Social History Alcohol Use: Rare Substance Use Type: Reports: None Smoking Status (MU): Former Smoker Review of Systems Positive: Fatigue - sleep frequently as well , Other - "not feeling normal", some recent weight gain . Negative: Fever Positive: Palpitations, Other - chest tightness. Negative: Chest Pain Positive: Shortness Of Breath - with exertion , Cough Negative: Vomiting, Nausea Positive: other - No urinary SX reported Negative: Headache All Other Systems Reviewed And Are Negative: Yes Physical Exam - Summary Physical Exam Summary: Appearance: Well appearing, no pain distress; pacemaker at left chest Skin: warm, dry, reflects adequate perfusion Head/face: normal Eyes: EOMI, AILIN ENT: normal Neck: supple, non-tender Respiratory: CTA, breath sounds present; breath sounds are a little diminished but all else normal otherwise Cardiovascular: RRR, pulses symmetrical Abdomen: non-tender, soft Bowel Sounds: present Musculoskeletal: normal, strength/ROM intact; 1-2+ BLE edema Neuro: normal, sensory motor intact, A&Ox3 Triage Information Reviewed: Yes Vital Signs On Initial Exam: Initial Vitals Temp Pulse Resp BP Pulse Ox 98.4 F 70 18 138/56 98 02/12/18 14:58 02/12/18 14:58 02/12/18 14:58 02/12/18 14:58 02/12/18 14:58 Vital Signs Reviewed: Yes Diagnostics - Vital Signs Vital Signs Temp Pulse Resp BP Pulse Ox 02/12/18 17:17 97.2 F 74 20 159/70 97 02/12/18 17:00 75 20 99 02/12/18 16:51 77 20 159/70 97 02/12/18 16:36 76 13 100 02/12/18 16:21 70 15 136/68 97 02/12/18 16:00 70 18 96 02/12/18 15:51 70 20 135/73 94 02/12/18 15:37 70 97 02/12/18 14:58 98.4 F 70 18 138/56 98 - Laboratory Lab Results: Lab Results 02/12/18 02/12/18 02/12/18 Range/Units 15:18 15:18 15:18 WBC 8.4 (3.5-10.8) 10^3/ul RBC 4.13 (4.00-5.40) 10^6/ul Hgb 13.1 L (14.0-18.0) g/dl Hct 38 L (42-52) % MCV 92 (80-94) fL MCH 32 H (27-31) pg MCHC 35 (31-36) g/dl RDW 14 (10.5-15) % Plt Count 204 (150-450) 10^3/ul MPV 8.9 (7.4-10.4) um3 Neut % (Auto) 57.8 (38-83) % Lymph % (Auto) 29.9 (25-47) % Garden % (Auto) 9.9 H (0-7) % Eos % (Auto) 1.5 (0-6) % Baso % (Auto) 0.9 (0-2) % Absolute Neuts (auto) 4.9 (1.5-7.7) 10^3/ul Absolute Lymphs (auto) 2.5 (1.0-4.8) 10^3/ul Absolute Monos (auto) 0.8 (0-0.8) 10^3/ul Absolute Eos (auto) 0.1 (0-0.6) 10^3/ul Absolute Basos (auto) 0.1 (0-0.2) 10^3/ul Absolute Nucleated RBC 0 10^3/ul Nucleated RBC % 0 INR (Anticoag Therapy) 1.06 H (0.77-1.02) ABG pH (7.35-7.45) ABG pCO2 (35-45) mmHg ABG pO2 (80-100) mmHg ABG HCO3 (19-31) mmol/L ABG O2 Saturation (95-98) % ABG Base Excess (-2.0-2.0) Sodium 133 L (135-145) mmol/L Potassium 4.8 (3.5-5.0) mmol/L Chloride 99 L (101-111) mmol/L Carbon Dioxide 27 (22-32) mmol/L Anion Gap 7 (2-11) mmol/L BUN 20 (6-24) mg/dL Creatinine 0.89 (0.67-1.17) mg/dL Est GFR ( Amer) 98.3 (>60) Est GFR (Non-Af Amer) 81.2 (>60) BUN/Creatinine Ratio 22.5 H (8-20) Glucose 362 H (70-100) mg/dL POC Glucose (mg/dL) (70-100) mg/dL Lactic Acid (0.5-2.0) mmol/L Calcium 9.3 (8.6-10.3) mg/dL Total Bilirubin 0.50 (0.2-1.0) mg/dL AST 16 (13-39) U/L ALT 23 (7-52) U/L Alkaline Phosphatase 64 (34-104) U/L Troponin I 0.00 (<0.04) ng/mL C-Reactive Protein < 1.00 (<8.01) mg/L B-Natriuretic Peptide ( - 100) pg/mL Total Protein 6.6 (6.4-8.9) g/dL Albumin 4.3 (3.2-5.2) g/dL Globulin 2.3 (2-4) g/dL Albumin/Globulin Ratio 1.9 (1-3) TSH (0.34-5.60) mcIU/mL 02/12/18 02/12/18 02/12/18 Range/Units 15:18 15:18 15:18 WBC (3.5-10.8) 10^3/ul RBC (4.00-5.40) 10^6/ul Hgb (14.0-18.0) g/dl Hct (42-52) % MCV (80-94) fL MCH (27-31) pg MCHC (31-36) g/dl RDW (10.5-15) % Plt Count (150-450) 10^3/ul MPV (7.4-10.4) um3 Neut % (Auto) (38-83) % Lymph % (Auto) (25-47) % Garden % (Auto) (0-7) % Eos % (Auto) (0-6) % Baso % (Auto) (0-2) % Absolute Neuts (auto) (1.5-7.7) 10^3/ul Absolute Lymphs (auto) (1.0-4.8) 10^3/ul Absolute Monos (auto) (0-0.8) 10^3/ul Absolute Eos (auto) (0-0.6) 10^3/ul Absolute Basos (auto) (0-0.2) 10^3/ul Absolute Nucleated RBC 10^3/ul Nucleated RBC % INR (Anticoag Therapy) (0.77-1.02) ABG pH (7.35-7.45) ABG pCO2 (35-45) mmHg ABG pO2 (80-100) mmHg ABG HCO3 (19-31) mmol/L ABG O2 Saturation (95-98) % ABG Base Excess (-2.0-2.0) Sodium (135-145) mmol/L Potassium (3.5-5.0) mmol/L Chloride (101-111) mmol/L Carbon Dioxide (22-32) mmol/L Anion Gap (2-11) mmol/L BUN (6-24) mg/dL Creatinine (0.67-1.17) mg/dL Est GFR ( Amer) (>60) Est GFR (Non-Af Amer) (>60) BUN/Creatinine Ratio (8-20) Glucose (70-100) mg/dL POC Glucose (mg/dL) (70-100) mg/dL Lactic Acid 1.7 (0.5-2.0) mmol/L Calcium (8.6-10.3) mg/dL Total Bilirubin (0.2-1.0) mg/dL AST (13-39) U/L ALT (7-52) U/L Alkaline Phosphatase (34-104) U/L Troponin I (<0.04) ng/mL C-Reactive Protein (<8.01) mg/L B-Natriuretic Peptide 214 H ( - 100) pg/mL Total Protein (6.4-8.9) g/dL Albumin (3.2-5.2) g/dL Globulin (2-4) g/dL Albumin/Globulin Ratio (1-3) TSH 4.11 (0.34-5.60) mcIU/mL 02/12/18 02/12/18 Range/Units 16:04 17:01 WBC (3.5-10.8) 10^3/ul RBC (4.00-5.40) 10^6/ul Hgb (14.0-18.0) g/dl Hct (42-52) % MCV (80-94) fL MCH (27-31) pg MCHC (31-36) g/dl RDW (10.5-15) % Plt Count (150-450) 10^3/ul MPV (7.4-10.4) um3 Neut % (Auto) (38-83) % Lymph % (Auto) (25-47) % Garden % (Auto) (0-7) % Eos % (Auto) (0-6) % Baso % (Auto) (0-2) % Absolute Neuts (auto) (1.5-7.7) 10^3/ul Absolute Lymphs (auto) (1.0-4.8) 10^3/ul Absolute Monos (auto) (0-0.8) 10^3/ul Absolute Eos (auto) (0-0.6) 10^3/ul Absolute Basos (auto) (0-0.2) 10^3/ul Absolute Nucleated RBC 10^3/ul Nucleated RBC % INR (Anticoag Therapy) (0.77-1.02) ABG pH 7.45 (7.35-7.45) ABG pCO2 42 (35-45) mmHg ABG pO2 79 L (80-100) mmHg ABG HCO3 28.5 (19-31) mmol/L ABG O2 Saturation 97.6 (95-98) % ABG Base Excess 4.7 H (-2.0-2.0) Sodium (135-145) mmol/L Potassium (3.5-5.0) mmol/L Chloride (101-111) mmol/L Carbon Dioxide (22-32) mmol/L Anion Gap (2-11) mmol/L BUN (6-24) mg/dL Creatinine (0.67-1.17) mg/dL Est GFR ( Amer) (>60) Est GFR (Non-Af Amer) (>60) BUN/Creatinine Ratio (8-20) Glucose (70-100) mg/dL POC Glucose (mg/dL) 192 H (70-100) mg/dL Lactic Acid (0.5-2.0) mmol/L Calcium (8.6-10.3) mg/dL Total Bilirubin (0.2-1.0) mg/dL AST (13-39) U/L ALT (7-52) U/L Alkaline Phosphatase (34-104) U/L Troponin I (<0.04) ng/mL C-Reactive Protein (<8.01) mg/L B-Natriuretic Peptide ( - 100) pg/mL Total Protein (6.4-8.9) g/dL Albumin (3.2-5.2) g/dL Globulin (2-4) g/dL Albumin/Globulin Ratio (1-3) TSH (0.34-5.60) mcIU/mL Result Diagrams: 02/12/18 15:18 02/12/18 15:18 Lab Statement: Any lab studies that have been ordered have been reviewed, and results considered in the medical decision making process. - Radiology CXR Xray Interpretation: No Acute Changes Radiology Interpretation Completed By: Radiologist - no evidence for acute intrathoracic disease; stigmata of probable chronic obstructive pulmonary disease; this report was reviewed by ED physician. - EKG 1515 Cardiac Rate: Other Rate - ventricular paced rhythm with rate of [address] Segment: Non-Specific EKG Interpretation: left axis deviation Re-Evaluation - Re-Evaluation First Eval Re-Evaluation Time: 16:24 Change: Improved Comment: Discussed results of tests and labs with patient. Blood sugar levels were lower. Patient is feeling better. He will be discharged to home and is agreeable with this plan. 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 He had some benefit with breathing treatment but I will not [place] on steroids given his diabetes and high blood sugar. With IV fluids he was feeling better. No good evidence for congestive heart failure to include only trace edema in the lower extremities and clear lung turcios on x-ray. He will need an outpatient echocardiogram. He'll follow closely with [facility], primary care physician. - Diagnoses Differential Diagnosis/HQI/PQRI: Positive: CHF, COPD Exacerbation, OR, Pneumonia , Pulmonary Embolism, Pulmonary Edema Provider Diagnoses: Hyperglycemia, Dyspnea Discharge - Sign-Out/Discharge Documenting (check all that apply): Patient Departure - discharge - Discharge Plan Condition: Improved Disposition: HOME Patient Education Materials: Diabetic Hyperglycemia (ED), Shortness of Breath ( ED) Referrals: Umberto Ortiz MD [Medical Doctor] - Monica Inman MD [Primary Care Provider] - Additional Instructions: Have your doctor schedule you for outpatient echocardiogram. Low-salt diet. Return with fever, coughing, increased shortness of breath, worse or other concerns as discussed. - Billing Disposition and Condition Condition: IMPROVED Disposition: Home - Attestation Statements Document Initiated by Scribroger: Yes Documenting Scribe: Pa Javed Provider For Whom Luisa is Documenting (Include Credential): Nixon Lebron MD Scribe Attestation: Pa Souza, scribed for Nixon Lebron MD on 02/12/18 at 1829. Scribe Documentation Reviewed: Yes Provider Attestation: The documentation as recorded by the Pa mendoza accurately reflects the service I personally performed and the decisions made by me, Nixon Lebron MD
== END 2018-02-12 17:17 | disposition home or self-care (01) ==
LOC: ED 14:54
DX: R06.02 Shortness of breath (principal); R42 Dizziness and giddiness; R00.2 Palpitations; Z87.891 Personal history of nicotine dependence; R53.83 Other fatigue; R73.9 Hyperglycemia, unspecified; I25.10 Atherosclerotic heart disease of native coronary artery without angina pectoris; Z79.01 Long term (current) use of anticoagulants; I10 Essential (primary) hypertension; Z95.0 Presence of cardiac pacemaker
CPT/HCPCS: 36415; 71046; 80053; 82803; 83605; 83880; 84443; 84484; 85025; 85610; 86140; 87040; 93005; 96360; 99283; A9270-GY

== ENCOUNTER 2018-04-24 14:12 | Observation (INO) | payer MEDICARE, OTHER ==
--- OUTSIDE RECORDS SUMMARY | 2018-04-24 14:41 | XMS REPORT ---
:1930 External Reference #:[id number] Author Organization [facility] Address [address] [place] [address] Phone [phone] Care Team Providers Name Role Phone Monica Inman MD Primary Care Physician Unavailable Payers Type Date Identification Numbers Payment Provider Subscriber Medicare Primary Policy Number: [id number] Medicare Abhilash Guerra PayID: [id number] [address] [place] [address] Medigap Part B Policy Number: [id number] [employer] Abhilash Guerra Group Number: [id number] [address] PayID: [id number] [place] [address] Problems Date Description Provider Status Onset: 05/29/2013 Ischemic heart disease Canelo Goetz M.D., Active FACC, FASNC Onset: 05/19/2014 Postoperative Wound Closure Monty Balderas M.D., FACC, Active Encounter FSCAI Onset: 10/21/2014 Disturbance in sleep behavior Nnacy Siddiqui MD Active Onset: 10/21/2014 Coronary arteriosclerosis Nancy [...] Form Strength Qnty SIG Indications Ordering Provider Nitro-Dur 02/28/ Active Patches 0.1mg/HR 90unit apply 1 I25.119 Christy S. 2018 24HR s patch daily Foster, 12 hours and N.P. remove at bedtime. Diltiazem CD 10/08/ Active Caps ER 120mg 180cap 1 by mouth Umberto 2017 24HR s twice a day. Anitha Ortiz M.D. Eliquis 03/01/ Active Tablets 5mg 60tabs 1 by mouth I48.0 Umberto 2016 twice a day Anitha Ortiz M.D. Pantoprazole 09/23/ Active Tablets 20mg 90tabs 1/2 tab by Umberto Sodium 2015 DR anthony every F. day Radha Ortiz Metoprolol 09/07/ Active Tablets 25mg 90tabs 1/2 by mouth Umberto Tartrate 2015 once a day Anitha Ortiz M.D. Magnesium [...] glass of water by mouth every day Preservision / Active Tablets 1 tab by Unknown Areds 0000 mouth twice daily Clopidogrel / Active Tablets 75mg 90tabs take 1 Umberto Bisulfate 0000 tablet by F. mouth every Krystaluser, day M.D. Atorvastatin / Active Tablets 40mg 45tabs take 1 Umberto Calcium 0000 tablet by F. mouth every Mauser, day M.D. Cpap / Active Device with mask Unknown 0000 wear at night when he sleeps Furosemide 02/20/ Hx Tablets 20mg 14tabs Take 1 tab Christy S. 2018 - by mouth Foster, 02/28/ daily x 2 N.P. 2018 days and prn weight gain 2-3lbs. Metoprolol 10/08/ Hx Tablets 25mg 2 tabs po in Umberto Tartrate 2014 - am 1 tab po 10/08/ in pm , 2014 Radha Metoprolol 10/08/ Hx Tablets 25mg 200tab 1 by mouth Umberto Tartrate 2014 - s twice a day , 2015 Radha Metoprolol 08/31/ Hx Tablets 25mg 60tabs 1 by mouth Umberto Succinate ER 2014 - ER 24HR twice a day , 2014 Radha Diovan 05/27/ Hx Tablets [...] Kareem 05/18/ every day Dasha Goetz M.D., [facility], [facility] Metoprolol 08/12/ Hx Tablets 25mg 180tab 2 tabs in Umberto Succinate ER 2012 - ER 24HR s the am and 1 F. 08/31/ tab in the use, 2014 pm Radha Diovan 08/12/ Hx Tablets 320mg 90tabs 1 tab by Canelo 2013 - mouth every Serna Dasha Goetz M.D., [facility], FASNC Metformin HCL 00/ Hx Tablets 500mg 1 po bid Unknown 0000 - 2012 Atorvastatin 00/ Hx Tablets 20mg 90tabs take 1 Unknown Calcium 0000 - tablet at 05/18/ bedtime 2013 Zetia /00/ Hx Tablets 10mg 90tabs 1 po qd Unknown 0000 - 2013 Warfarin 00/ Hx Tablets 1mg 60tabs 5 tabs take Unknown Sodium 0000 - as directed 2013 Oxybutynin 00/ Hx Tablets 5mg 1 po qd Unknown Chloride 0000 - 2015 Aspirin Ec / Hx Tablets 81mg 90tabs 1 tablet Unknown Lo-Dose 0000 - DR daily discontinue 2017 9.14.17 Isosorbide 00/ Hx Tablets 30mg 270tab 1 by mouth Umberto Mononitrate ER 0000 - ER 24HR s every day F. 08/23/ Diana 2014 Radha Diovan 00/ Hx Tablets 1 by mouth Unknown 0000 - every day 2013 Metamucil 00/ Hx daily Unknown 0000 - 2014 Pepcid 00/ Hx Tablets 20mg 90tabs 1 by mouth Unknown 0000 - every day 2013 Guamanian Herbs / Hx 1 pack a day Unknown 0000 - 2014 Valsartan 00/ Hx Tablets 40mg 1 by mouth Unknown 0000 - every day 2014 Vitamin B-12 / Hx Tablets 500mcg 1 by mouth Unknown 0000 - Sub every day 2016 Medications Administered in Office Medication Date Status Form Strength Qnty SIG Indications Ordering Provider Inj, Administered Injection Lit Rogers Regadenoson, 018 Radha Martinez 0.1 MG Technetium TC Administered Injection Lit D. 99M 018 Radha Martinez Tetrofosmin, Per Unit Dose Up To 40 Millicuries Inj, Administered Injection Lit D. Regadenoson, 017 Radha Martinez 0.1 MG Technetium TC Administered Injection Lit DStar 99M 017 Radha Martinez Tetrofosmin, Per Unit Dose Up To 40 Millicuries Technetium TC Administered Injection Lit Rogers 99M 016 Radha Martinez Tetrofosmin, Per Unit Dose Up To 40 Millicuries Technetium TC Administered Injection Anne Ramirez, 99M 016 PA Tetrofosmin, Per Unit Dose Up To 40 Millicuries Vital Signs Date Vital Result Comment 03/28/2018 Height 68 inches 5'8" Weight 169.00 lb with shoes Heart Rate 60 /min BP Systolic Sitting 120 mmHg Lue reg cuff BP Diastolic Sitting 70 mmHg Lue reg cuff BP Systolic Standing 118 mmHg Lue reg cuff BP Diastolic Standing 70 mmHg Lue reg cuff Respiratory Rate 16 /min BMI (Body Mass Index) 25.7 kg/m2 Ejection Fraction 60-65% date 02/22/18 ECHO 03/05/2018 Height 68 inches 5'8" Weight 170.25 lb Heart Rate 74 /min BP Systolic Sitting 138 mmHg Lue reg cuff BP Diastolic Sitting 74 mmHg Lue reg cuff Respiratory Rate 16 /min O2 % BldC Oximetry 97 % On Ra BMI (Body Mass Index) 25.9 kg/m2 02/28/2018 Height 68 inches 5'8" Weight 170.25 lb Heart Rate 76 /min BP Systolic 120 mmHg right arm BP Diastolic 64 mmHg right arm BMI (Body Mass Index) 25.9 kg/m2 Ejection Fraction 60-65% Echocardiogram 02/27/2018 02/12/2018 Height 68 inches 5'8" Weight 168.00 [...] Blood Cells % 0 Lipid Panel - M 11/06/2017 Creatine Kinase(CK) 39 U/L 10-223 Comp [...] mg/dL 8 LDL Cholesterol 124 mg/dL 9 Laboratory test finding 03/05/2017 Magnesium 1.9 mg/dL 1.9-2.7 Creatine Kinase(CK) 48 U/L 10-223 CBC Auto Diff 03/05/2017 White Blood Count [...] Cells % 0 Laboratory test finding 03/05/2017 TSH (Thyroid Stim Horm) 3.83 mcIU/mL 0.34-5.60 Comp Metabolic Panel 03/05/2017 Sodium 136 mmol/L [...] Non- 81.4 >60 Egfr 104.7 >60 10 Basic Metabolic Panel 12/15/2016 Sodium 136 mmol/L 133-145 Potassium 4.4 mmol/L 3.5-5.0 Chloride 101 mmol/L 101-111 Co2 Carbon Dioxide 26 mmol/L 22-32 Anion Gap 9 mmol/L 2-11 Glucose 99 mg/dL 70-100 Blood Urea Nitrogen 18 mg/dL 6-24 Creatinine 0.84 mg/dL 0.67-1.17 BUN/Creatinine Ratio 21.4 High 8-20 Calcium 9.7 mg/dL 8.6-10.3 Egfr Non- 87.1 >60 Egfr 112.0 >60 11 Laboratory test finding 11/16/2016 B-Type Natriuretic 143 pg/mL High 12 Peptide BNP Liver Function Panel 11/16/2016 Total Protein 6.5 [...] Blood Cells % 0.3 Lipid Panel - [facility] 11/16/2016 Creatine Kinase(CK) 31 U/L 10-223 Comp [...] Egfr Non- 93.4 >60 Egfr 120.2 >60 13 Lipid Profile (Trig/Chol/HDL) 11/16/2016 Triglycerides 123 mg/dL 14 Cholesterol 152 mg/dL 15 HDL Cholesterol 35.6 mg/dL 16 LDL Cholesterol 92 mg/dL 17 Laboratory test finding 11/16/2016 TSH (Thyroid Stim 3.58 mcIU/mL 0.34- 5.60 Horm) Vitamin B12 And Folate 11/16/2016 Vitamin B12 1136 pg/mL High 180-914 18 Serum Folic Acid (Folate) > 20.00 ng/mL >3.99 Lipid Panel - [facility] 03/02/2016 Creatine Kinase 40 U/L 10-223 19, [...] 24 LDL Cholesterol 103 mg/dL 19, 25 Lipid Profile (Trig/Chol/HDL) 09/14/2015 Triglycerides 129 mg/dL 26 Cholesterol 177 mg/dL 27 HDL Cholesterol 43.5 mg/dL 28 LDL Cholesterol 108 mg/dL 29 CBC Auto Diff 09/14/2015 White Blood Count [...] 0-2 Nucleated Red Blood Cells % 0 Comp Metabolic Panel 09/14/2015 Sodium 136 mmol/L [...] Egfr Non- 80.6 >60 Egfr 103.6 >60 30 Lipid Panel - [facility] 09/14/2015 Creatine Kinase(CK) 44 U/L 10-223 Laboratory test finding 09/14/2015 B-Type Natriuretic 98 pg/mL 31 Peptide BNP Laboratory test finding 08/25/2014 Magnesium 1.8 mg/dL Low 1.9-2.7 TSH (Thyroid Stimulating Horm) 3.31 IU/mL 0.34-5.60 Comp Metabolic Panel 08/25/2014 Sodium 136 mmol/L [...] Non- 71.5 >60 Egfr 92.0 >60 32 CBC Auto Diff 08/25/2014 White Blood Count [...] 0-2 Nucleated Red Blood Cells % 0.2 Order 07/14/2014 Stress Test, Exercise <pending> Echocardiogram Laboratory test finding 06/26/2014 B Type Natriuretic Peptide 123 pg/mL 33 Lipid Panel - [facility] 06/26/2014 Creatine Kinase 64 U/L 10-223 Comp Metabolic Panel 06/26/2014 Sodium 133 mmol/L [...] Egfr Non- 51.5 >60 Egfr 66.2 >60 34 Lipid Profile (Trig/Chol/HDL) 06/26/2014 Triglycerides 152 mg/dL 35 Cholesterol 181 mg/dL 36 HDL Cholesterol 44.1 mg/dL 37 LDL Cholesterol 107 mg/dL 38 CBC Auto Diff 06/26/2014 White Blood Count [...] 09/05/2007 Surgical Pathology <SEE NOTE > 39 Basic Metabolic 08/30/2007 One Over Creatinine 0.83 Panel Anion Gap 2.0 mmol/L 2-11 40 BUN 17 mg/dL 6-24 Calcium 9.2 mg/dL 8.7-10.2 Chloride 101 mmol/L 101-111 Co2 (Carbon Dioxide) 30.0 mmol/L 22-32 Glucose 174 mg/dL High 70-105 Potassium 4.8 mmol/L 3.5-5.0 Sodium 133 mmol/L Low 135-145 BUN/Creatinine Ratio 14.2 8-20 Creatinine 1.2 mg/dL 0.5-1.4 CBC With Electronic Diff 08/30/2007 White Blood [...] 4.6-6.2 Redcell Distribution WDTH 13 % 10.5-15 Type And Screen 08/30/2007 Patient Blood Type A POSITIVE Antibody Screen NEGATIVE Specimen Discard Date 09/13/07 41 1 Because ethnic data is not always [...] 5 Kidney failure <15 (or dialysis) 12 >100 to <200 pg/mL: likely compensated congestive heart failure (CHF) 200 to 400 pg/mL: likely moderate CHF >400 pg/mL: likely moderate to severe CHF 13 Because ethnic data is not always readily [...] 15-29 5 Kidney failure <15 (or dialysis) 14 Desirable <150 Borderline high 150-199 High 200-499 Very High >500 15 Desirable <200 Borderline high 200-239 High >239 16 Low <40 Desirable: 40-60 High: >60 17 Desirable: <100 mg/dL Near Optimal: 100-129 mg/dL Borderline High: 130-159 mg/dL High: 160-189 mg/dL Very High: >189 mg/dL 18 Normal Range 180 to 914 Indeterminate Range 145 to 180 Deficient Range <145 19 [id number] 21 Because ethnic data is not always [...] 160-189 mg/dL Very High: >189 mg/dL 26 Desirable <150 Borderline high 150-199 High 200-499 Very High >500 27 Desirable <200 Borderline high 200-239 High >239 28 Low <40 Desirable: 40-60 High: >60 29 Desirable: <100 mg/dL Near Optimal: 100-129 mg/dL Borderline High: 130-159 mg/dL High: 160-189 mg/dL Very High: >189 mg/dL 30 Because ethnic data is not always readily [...] 15-29 5 Kidney failure <15 (or dialysis) 31 >100 to <200 pg/mL: likely compensated congestive heart failure (CHF) 200 to 400 pg/mL: likely moderate CHF >400 pg/mL: likely moderate to severe CHF 32 Because ethnic data is not always [...] 5 Kidney failure <15 (or dialysis) 33 >100 to <200 pg/mL: likely compensated congestive heart failure (CHF) 200 to 400 pg/mL: likely moderate CHF >400 pg/mL: likely moderate to severe CHF [facility] 34 Because ethnic data is not always readily [...] 15-29 5 Kidney failure <15 (or dialysis) 35 Desirable <150 Borderline high 150-199 High 200-499 Very High >500 36 Desirable <200 Borderline high 200-239 High >239 37 Low <40 Desirable: 40-60 High: >60 38 Desirable <100 Near Optimal 100-129 Borderline high 130-159 High 160-189 Very High >189 39 ---- RUN DATE: 09/06/07 [facility] NMI LIVE PAGE 1 RUN TIME: 1617 Specimen Inquiry RUN USER: INTERFACE [id number] ABHILASH GUERRA/Justice <[facility] 09/05> ([id number]) Rohan Galindo MD -- Specimen: [id number] RADHA Spec Date: 09/05/[address]: Rohan fajardo MD Spec Type: SURGICAL [...] x 2.0 x 0.8 cm. in aggregate. [employer] Consultant section, one cassette. DIAGNOSIS 1) Skin, lumbar, excision - Cicatrix. 2) Intervertebral disc, L5-S1, discectomy - Intervertebral disc material with degenerative features. Signed Electronically by: BRANT JONES MD 09/06/07 1616 -- -- DEPARTMENT OF PATHOLOGY, [address] [place] [address] [facility] Permit #[id number] Brant Jones M.D. Director of Laboratories -- 40 Anion gap measurement may be of limited value in the presence of any alkalosis, especially in a combined acid base disorder. . 41 PREADMISSION TESTING SAMPLES FOR BLOOD BANK WILL [...] WITHIN 3 DAYS OF THE SURGERY DATE. Procedures Date CPT Code Description Status 03/07/2018 21970 Pace Maker Eval W/Iterative Adjment Dual Lead Completed 03/07/2018 87205 Pace Maker Eval W/Iterative Adjment Dual Lead Completed 02/22/2018 60286 ECHO Transthoracic, Real-Time 2D With Doppler And Color Completed Flow 02/22/2018 68311 Interrogation Device Eval In Person TOREY Completed Analysis,Single,Dual,Mul 02/22/2018 25067 Interrogation Device Eval In Person TOREY Completed Analysis,Single,Dual,Mul 02/15/2018 46150 Stress Test Completed 02/15/2018 61579 Myocardial Perfusion Imaging Tomographic (Spect) Completed Multiple Studies 02/12/2018 33282 EKG Tracing & Interpretation Completed 01/22/2018 36300 Interrogation Device Eval In Person TOREY Completed Analysis,Single,Dual,Mul 01/22/2018 56323 Interrogation Device Eval In Person W/DR Completed Analysis,Single,Dual,Mul 12/25/2017 31230 Interrogation Device Eval In Person W/DR Completed Analysis,Single,Dual,Mul 12/25/2017 51763 Interrogation Device Eval In Person W/DR Completed Analysis,Single,Dual,Mul 11/21/2017 06952 Pace Maker Eval W/Iterative Adjment Dual Lead Completed 11/21/2017 05585 Pace Maker Eval W/Iterative Adjment Dual Lead Completed 11/06/2017 16884 EKG Tracing & Interpretation Completed 10/08/2017 09345 EKG Tracing & Interpretation Completed 10/08/2017 95512 Pace Maker Eval W/Iterative Adjment Dual Lead Completed 10/08/2017 70429 Pace Maker Eval W/Iterative Adjment Dual Lead Completed 07/25/2017 68960 EKG Tracing & Interpretation Completed 03/02/2017 16117 Pace Maker Eval W/Iterative Adjment Dual Lead Completed 03/01/2017 51763 EKG Tracing & Interpretation Completed 02/27/2017 72753 Pace Maker Eval W/Iterative Adjment Dual Lead Completed 11/27/2016 09680 ECHO Transthoracic, Real-Time 2D With Doppler And Color Completed Flow 11/02/2016 61034 Myocardial Perfusion Imaging Tomographic (Spect) Completed Multiple Studies 11/02/2016 05085 Stress Test Completed 10/23/2016 53601 ECHO Transthorasic Realtime 2D W Doppler & Color Flow Completed Hosp 10/23/2016 65730 EKG Tracing & Interpretation Completed 10/13/2016 90336 Pace Maker Eval W/Iterative Adjment Dual Lead Completed 03/08/2016 35845 EKG Tracing & Interpretation Completed 03/08/2016 84265 EKG Tracing & Interpretation Completed 03/01/2016 60524 Pace Maker Eval W/Iterative Adjment Dual Lead Completed 09/27/2015 51463 Interrogation Device Eval In Person W/DR Completed Analysis,Single,Dual,Mul 09/24/2015 92912 Myocardial Perfusion Imaging Tomographic (Spect) Completed Multiple Studies 09/24/2015 09776 Myocardial Perfusion Imaging Tomographic (Spect) Completed Multiple Studies 09/24/2015 13858 Stress Test Completed 09/08/2015 09746 EKG Tracing & Interpretation Completed 03/17/2015 23843 Interrogation Device Eval In Person W/DR Completed Analysis,Single,Dual,Mul 03/11/2015 76098 EKG Tracing & Interpretation Completed 02/14/2015 24382 Polysomnography Sleep Staging 4+ Parameters W/Cpap Completed 11/25/2014 11813 Polysomnography Sleep Staging 4+ Parameters Completed 10/08/2014 87728 Pace Maker Eval W/Iterative Adjment Dual Lead Completed 10/08/2014 50546 EKG Tracing & Interpretation Completed 09/04/2014 00082 Interrogation Device Eval In Person W/DR Completed Analysis,Single,Dual,Mul 09/03/2014 54649 Pace Maker Eval W/Iterative Adjment Dual Lead Completed 08/31/2014 11620 EKG Tracing & Interpretation Completed 08/26/2014 47768 Pace Maker Eval W/Iterative Adjment Dual Lead Completed 07/29/2014 75097 EKG Tracing & Interpretation Completed 07/14/2014 31829 ECHO Stress Test Incl Perf Contiuous ekg Monitoring Completed W/Phys Superv 05/27/2014 40918 EKG Tracing & Interpretation Completed 05/15/2014 11272 Percutaneous Transcatheter Placement Of Intracoronary Completed Stent 05/15/2014 88089 EKG, Interpretation Only Completed 05/15/2014 63530 Stress Test Supervsn W/Out I/R Completed 05/15/2014 15970 Treadmill Interp/Report Only Completed 05/15/2014 50288 Left Heart Cath. Incl S/I Coronaries, Angio S/I V Gram Completed If Done 05/01/2014 22262 EKG Tracing & Interpretation Completed 04/23/2014 30561 ECHO Transthoracic, Real-Time 2D With Doppler And Color Completed Flow 04/01/2014 68280 Pace Maker Eval W/Iterative Adjment Dual Lead Completed 09/30/2013 37797 Pace Maker Eval W/Iterative Adjment Dual Lead Completed 05/27/2013 34731 ECHO Transthoracic, Real-Time 2D With Doppler And Color Completed Flow 04/01/2013 81481 Pace Maker Eval W/Iterative Adjment Dual Lead Completed 09/06/2012 68809 Pace Maker Eval W/Iterative Adjment Dual Lead Completed 07/18/2012 84501 EKG Tracing & Interpretation Completed 02/18/2012 48168 EKG, Interpretation Only Completed 10/21/2009 80525 Rad Exam; Both Knees, Standing Ap Completed 09/05/2007 49730 Laminotomy W/Decomp NRV RT,One Interspace,Lumbar Completed 09/05/2007 87321 Laminotomy W/Decomp NRV RT,One Interspace,Lumbar Completed Encounters Type Date Location Provider CPT E/M Dx Office Visit 03/05/2018 Pulmonology And Sleep Ashwini Encarnacion, 69890 G47.33 8:30a [facility] JOSE VARGHESE, GRAPHICS COORDINATOR-BC R53.83 Z68.25 Office Visit 02/28/2018 9:00a [facility] Christy Lara, N.P. 45527 R06.09 E78.00 I10 I25.119 Office Visit 02/12/2018 12:00p [facility] Christy Lara, 44122 I25.119 [facility] N.P. I10 I48.2 E78.00 I49.5 Office Visit 01/01/2018 10:30a [facility] Ashwini Encarnacion, 73523 G47.33 [facility] JOSE VARGHESE, [facility]-BC R53.83 Office Visit 11/06/2017 9:30a [facility] Umberto Ortiz, 16230 I49.5 [facility] M.D. I48.2 I25.10 I34.0 I10 E78.00 Office Visit 10/08/2017 2:00p [facility] Radha Ortiz, 93073 I48.2 [facility] M.D. I25.10 I34.0 Z95.0 I10 E78.00 Office Visit 07/25/2017 9:00a [facility] Christy Lara, N.P. 22225 I49.5 I48.0 I25.10 I34.0 I10 Office Visit 03/01/2017 9:40a [facility] Umberto Ortiz, 17355 R06.00 M.D. I25.10 I34.0 I48.0 I49.5 I10 I48.2 Z95.0 R94.31 Office Visit 12/01/2016 11:00a [facility] TERESA Cardoza 02472 R06.00 Z95.0 I25.10 E78.5 E87.1 Office Visit 10/23/2016 10:20a [facility] Umberto Ortiz M.D. 17361 Z95.0 I49.5 G47.33 I25.10 R06.00 Office Visit 10/11/2016 9:30a Pulmonology And Ashwini Encarnacion, 24811 G47.33 Sleep Services Of JOSE VARGHESE, [facility] Office Visit 03/08/2016 9:30a [facility] TERESA Cardoza 98706ABE Z95.0 E78.5 I25.10 Office Visit 09/28/2015 10:30a [facility] TERESA Cardoza 75111VWC I25.9 I11.9 Z95.0 I25.10 E78.5 Office Visit 09/08/2015 1:40p [facility] Umberto Ortiz 34019 G47.33 Radha I49.5 I25.9 I11.9 R06.00 R60.0 Office Visit 06/25/2015 3:00p [facility] Ashwini Encarnacion 34847 G47.33 [facility] JOSE VARGHESE, [facility] Office Visit 03/15/2015 11:30a [facility] [place] [address] 414.9 427.81 Office Visit 03/11/2015 9:00a [facility] Umberto Ortiz 23346 G47.33 WilmaDStar I25.10 I49.5 I11.9 Office Visit 03/08/2015 2:30p [facility] [place] [address] G47.33 [facility] Office Visit 01/07/2015 10:15a [facility] [place] [address] 327.23 [facility] Office Visit 10/21/2014 8:45a [facility] [place] [address] 780.50 [facility] 414.01 V45.01 799.02 Office Visit 10/08/2014 1:00p [facility] Umberto Ortiz M.D. 65214 785.2 427.81 785.1 401.1 414.01 Office Visit 09/03/2014 12:00p [facility] Umberto Ortiz 52715 427.81 M.D. 414.01 411.89 785.1 Office Visit 08/31/2014 2:40p [facility] Umberto Ortiz, 85126 427.81 M.D. V45.01 401.1 411.89 307.49 Office Visit 07/29/2014 10:00a [facility] Umberto Raineyshelly, 88558 414.01 M.D. 786.50 401.1 272.4 Office Visit 07/14/2014 9:30a [facility] Umberto Ortiz, 19848 414.01 M.D. 272.4 401.1 Office Visit 05/27/2014 10:40a [facility] Umberto Raineyshelly, 44588 786.50 M.D. 786.59 250.00 414.01 Office Visit 05/19/2014 4:00p [facility] Of Monty Balderas M.D., 68426 V58.41 Perfume Maker AT [facility] Office Visit 05/16/2014 1:54p [facility], Himanshu 59751 786.50 Hospitalists Radha Bai 414.9 272.4 250.00 Office Visit 05/15/2014 1:54p [facility],pc Myriam Cuevas, 74092 786.50 Hospitalists MStarDStar 414.9 Office Visit 05/14/2014 1:54p [facility],konrad Cuevas, 63563 786.50 Hospitalists MStarDStar 414.9 Office Visit 05/01/2014 10:45a [facility] Canelo Goetz, 16958 411.89 MShira, [facility] Office Visit 05/29/2013 8:30a [facility] Of Canelo Goetz, 97310 411.89 Perfume Maker Radha, [facility] Office Visit 02/05/2013 12:41p [facility],pc Danna Laughlin, 90969 682.6 Hospitalists D.OStar 338.11 414.01 427.32 Office Visit 02/04/2013 12:41p [facility], Cinthia Womack, 31790 682.6 Hospitalists M.DStar 338.11 414.01 427.32 Office Visit 12/09/2012 10:15a [facility] Of Canelo Goetz, 56682 414.9 Glo Garcia, [facility] Office Visit 07/18/2012 10:30a [facility] Of Canelo Goetz, 31174 414.9 Glo Garcia, [facility], [facility] Office Visit 02/19/2012 12:59p [facility] Umberto Ortiz, 57102 411.89 M.DStar 414.01 401.0 427.32 427.81 Office Visit 02/18/2012 12:53p [facility] Umberto Ortiz, 65428 414.01 M.DStar 401.0 427.32 Office Visit 10/21/2009 9:00a [place] [address] 716.96 C.M.A. Office Visit 02/10/2008 10:20a Neurosurgery Services Of Rohan Ramirez, 74120 784.0 Glo Garcia 348.8 Office Visit 08/15/2007 2:15p [facility] Services Rohan Ramirez, 07178 722.10 Of Glo Garcia Office Visit 07/19/2007 1:00p Neurosurgery Services Rohan Ramirez, 67666 722.10 Of Glo Garcia Plan of Care Future Appointment(s):05/22/2018 3:00 pm - Ica Pacer Schedule at [facility]05/15/2018 1:45 pm - Ashwini Encarnacion DNP, RN, GRAPHICS COORDINATOR-BC at [facility]03/28/2018 - Christy Lara, N.P.I10 Essential (primary) caevcguoggveG02.09 Other forms of csdywbqR71.00 Pure hypercholesterolemia, xmytvodbijwC17.119 Athscl heart disease of chicken ranch cor art w unsp ang pctrsFollow up:06/2018 OV JFMRecommendations:Continue nitro, metoprolol, clopidogrel, statin. Continue monderate exercise and let us know if you have an decline in exercise capacity or worsening shortness of breath. DO NOT TAKE ASA!I48.2 Chronic atrial fibrillation
[2018-04-24 14:51] LABS: ABS Basophils 0.1 10^3/ul (0-0.2); ABS Eosinophils 0.1 10^3/ul (0-0.6); ABS Lymphocytes 2.5 10^3/ul (1.0-4.8); ABS Monocytes 0.8 10^3/ul (0-0.8); ABS Neutrophils 5.4 10^3/ul (1.5-7.7); ABS Nucleated RBC 0 10^3/ul; Eosinophil % 1.2 % (0-6); Hematocrit 42 % (42-52); Hemoglobin 14.5 g/dl (14.0-18.0); Lymphocyte % 27.8 % (25-47); Mean Corpuscular HGB Conc 34 g/dl (31-36); Mean Corpuscular Hemoglobin 32 pg (27-31); Mean Corpuscular Volume 93 fL (80-94); Mean Platelet Volume 8.7 fL (7.4-10.4); Nucleated Red Blood Cells % 0; Platelet Count 225 10^3/ul (150-450); Red Blood Count 4.56 10^6/ul (4.00-5.40); Red Cell Distribution Width 14 % (10.5-15); White Blood Count 8.8 10^3/ul (3.5-10.8)
[2018-04-24 15:07] LABS: INR 1.07 (0.77-1.02)
--- NOTE | 2018-04-24 15:30 | ED ---
Complex/Multi-Sys Presentation - HPI Summary HPI Summary: An 88 y/o M brought in by ambulance presents to ED with episodes of a-fib and elevated blood sugars first noticed this afternoon at Dr. Inman's office. Pt was in the office for a DM check, as the pt's glucose numbers were high on the last visit as well. Pt was picked up by EMS from the provider's office. Per Dr. Inman's HPI: Pt reported a morning glucose of 270. Pt received long- acting Lantus in the office, and felt dizzy afterwards. Repeat glucose after sugar in the office and lantus was [address] Inman's office notes ( reviewed upon arrival in the ED). They performed an EKG in office and it showed afib with flipped T-waves in inferior leads and EMS was called. At bedside, pt denies CP, fever, chills, diaphoresis. He states the dizziness felt like an episode of low sugar. He sees Dr Ortiz, asset analyst. Pt with hx afib, on Eliquis has a pacemaker "which is due to be checked soon". Met pt immediately upon arrival while awaiting room assignment at 1412. Vital signs while in room: HR 72 bpm, BP 148/84. Home Medications Medication Instructions Recorded Confirmed Type Finasteride [Proscar] 5 mg PO QPM 04/14/12 02/12/18 History Metoprolol Succinate [Metoprolol 25 mg PO BID 04/14/12 02/12/18 History Succinate ER] Atorvastatin* [Lipitor 20 MG*] 40 mg PO QPM 01/29/13 02/12/18 History Glipizide-Metformin HCl 1 tab PO BID 06/09/13 02/12/18 History [Glipizide/Metformin HCl] Aspirin EC TAB* [Ecotrin EC Low 81 mg PO DAILY 05/14/14 02/12/18 History Dose 81 MG*] Calcium Carbonate/Vitamin D3 1 chw PO QAM 05/14/14 02/12/18 History [Calcium 500+D Tablet Chew] Multivitamin [Multivitamins] 1 cap PO QAM 05/14/14 02/12/18 History Psyllium ADELA* [Metamucil ADELA*] 1 pkt PO DAILY 05/14/14 02/12/18 History Clopidogrel TAB* 1 tab PO DAILY 11/18/14 02/12/18 History Diltiazem TAB* 2 tab PO DAILY 11/18/14 02/12/18 History Pantoprazole TAB (NF) [Protonix 40 mg PO DAILY 01/06/16 02/12/18 History TAB (NF)] Apixaban* [Eliquis*] 5 mg PO BID 10/27/17 02/12/18 History - History Of Current Complaint Chief Complaint: EDDysrhythmPalp Hx Obtained From: Patient, Family/Mechanical Equipment Test Engineer - daughter, son-in-law, EMS Onset/Duration: Sudden Onset, Lasting Hours, Still Present Timing: Constant Severity Currently: Moderate Severity Initially: Moderate - dizziness Location: Negative Character: Unable To Describe Aggravating Factor(s): Nothing Alleviating Factor(s): Nothing Associated Signs And Symptoms: Positive: Dizziness, Weakness, Other - neg: chills, diaphoresis. Negative: Chest Pain, Fever - Allergies/Home Medications Allergies/Adverse Reactions: Allergies Allergy/AdvReac Type Severity Reaction Status Date / Time Penicillins Allergy Hives Verified 02/12/18 15:59 Home Medications: Home Medications Apixaban* [Eliquis*] 5 mg PO BID 04/24/18 [History Confirmed 04/24/18] Atorvastatin* [Lipitor 40 MG*] 40 mg PO DAILY 04/24/18 [History Confirmed ] B2/Vits A,C,E/Lut/Zeaxanth/Min [Icaps Tablet] 1 tab PO BID 04/24/18 [History Confirmed 04/24/18] Calcium Carb/Magnesium Oxid/D3 [Calcium Magnesium + D Tablet] 1 tab PO DAILY 01/02 [History Confirmed 04/24/18] Calcium Carbonate [Calcium] 500 mg PO DAILY 04/24/18 [History Confirmed 04/24/18 ] Cholecalciferol TAB* [Vitamin D TAB*] 400 unit PO DAILY 04/24/18 [History Confirmed 04/24/18] Clopidogrel TAB* [Plavix TAB*] 75 mg PO QAM 04/24/18 [History Confirmed 04/24/18 ] Finasteride TAB* [Proscar TAB*] 5 mg PO DAILY 04/24/18 [History Confirmed ] Multivitamins/Minerals TAB* [Theragran/minerals TAB*] 1 tab PO DAILY 04/24/18 [ History Confirmed 04/24/18] Nitroglycerin 0.1 mg/Hr PATCH* [Nitroglycerin 2.5 MG PATCH*] 1 patch TRANSDERM DAILY 04/24/18 [History Confirmed 04/24/18] Pantoprazole TAB (NF) [Protonix TAB (NF)] 10 mg PO DAILY 04/24/18 [History Confirmed 04/24/18] Psyllium ADELA* [Metamucil ADELA*] 1 pkt PO DAILY 04/24/18 [History Confirmed ] dilTIAZem HCl [Diltiazem ER] 120 mg PO BID 04/24/18 [History Confirmed 04/24/18] PMH/Surg Hx/FS Hx/Imm Hx Previously Healthy: No Endocrine/Hematology History: Reports: Hx Anticoagulant Therapy Denies: Hx Diabetes, Hx Systemic Lupus Erythematosus, Hx Thyroid Disease Cardiovascular History: Reports: Hx Angina, Hx Coronary Artery Disease, Hx Hypercholesterolemia, Hx Hypertension - ON MEDS, Hx Pacemaker/ICD, Other Cardiovascular Problems/Disorders - afib/flutter Denies: Hx Myocardial Infarction, Hx Valvular Heart Disease Respiratory History: Reports: Hx Sleep Apnea - POSSIBLE, HIS THINKS SO Denies: Hx Asthma, Hx Chronic Obstructive Pulmonary Disease (COPD) GI History: Reports: Hx Gastroesophageal Reflux Disease, Other GI Disorders - partial small bowel resection Denies: Hx Ulcer History: Reports: Hx Benign Prostatic Hyperplasia Denies: Hx Dialysis, Hx Renal Disease Musculoskeletal History: Reports: Hx Arthritis, Hx Back Problems Denies: Hx Rheumatoid Arthritis Sensory History: Reports: Hx Contacts or Glasses, Hx Hearing Aid Opthamlomology History: Reports: Hx Contacts or Glasses - Cancer History Hx Chemotherapy: No - Surgical History Surgery Procedure, Year, and Place: hernia repair, ortho surgery, prostate surgery, pacer, coronary stents Hx Anesthesia Reactions: No Infectious Disease History: No Infectious Disease History: Reports: Traveled Outside the [place] in Last 30 Days Denies: Hx Clostridium Difficile, Hx Hepatitis, Hx Human Immunodeficiency Virus (HIV), Hx of Known/Suspected MRSA, Hx Shingles, Hx Tuberculosis, Hx Known/ Suspected VRE, Hx Known/Suspected VRSA, History Other Infectious Disease - Family History Known Family History: Positive: Hypertension - Social History Occupation: Retired Lives: With Family Alcohol Use: Rare Hx Substance Use: No Substance Use Type: Reports: None Hx Tobacco Use: Yes Smoking Status (MU): Former Smoker Review of Systems Positive: Other - pos: elevated glucose. Negative: Fever, Chills, Skin Diaphoresis Positive: Palpitations - afib. Negative: Chest Pain Respiratory: Negative Gastrointestinal: Negative Positive: no symptoms reported Skin: Negative Neurological: Other - pos: dizziness Psychological: Normal All Other Systems Reviewed And Are Negative: Yes Physical Exam - Summary Physical Exam Summary: Appearance: Well-appearing, no pain distress, well-nourished Skin: Warm, color reflects adequate perfusion, dry Head: Normal Head/Face inspection, atraumatic Eyes: Conjunctiva clear ENT: Normal inspection Neck: Supple, no nodes, no JVD Respiratory: Lungs clear, normal breath sounds, no respiratory distress Cardio:irregularly irregulary heart rate with flutter waves and paced beats on EKG and monitor, No murmur, pulses normal, brisk capillary refill Abdomen: Soft, nontender, no masses, nondistended Bowel sounds: Present Musculoskeletal: Strength Intact/ROM intact, no calf tenderness, no edema. Psychological: Normal Neuro: Alert, muscle tone normal, no focal deficit Triage Information Reviewed: Yes Vital Signs On Initial Exam: Initial Vitals Pulse Resp BP Pulse Ox 71 21 147/80 99 04/24/18 14:19 04/24/18 14:19 04/24/18 14:19 04/24/18 14:19 Vital Signs Reviewed: Yes - Jodi Coma Scale Best Eye Response: 4 - Spontaneous Best Motor Response: 6 - Obeys Commands Best Verbal Response: 5 - Oriented Coma Scale Total: 15 Diagnostics - Vital Signs Vital Signs Temp Pulse Resp BP Pulse Ox 04/24/18 15:00 63 18 96 04/24/18 14:20 97.7 F 68 16 147/80 99 04/24/18 14:19 71 21 147/80 99 - Laboratory Lab Results: Lab Results 04/24/18 04/24/18 04/24/18 Range/Units 14:39 14:40 14:40 WBC 8.8 (3.5-10.8) 10^3/ul RBC 4.56 (4.00-5.40) 10^6/ul Hgb 14.5 (14.0-18.0) g/dl Hct 42 (42-52) % MCV 93 (80-94) fL MCH 32 H (27-31) pg MCHC 34 (31-36) g/dl RDW 14 (10.5-15) % Plt Count 225 (150-450) 10^3/ul MPV 8.7 (7.4-10.4) fL Neut % (Auto) 61.5 (38-83) % Lymph % (Auto) 27.8 (25-47) % Lassen % (Auto) 8.8 H (0-7) % Eos % (Auto) 1.2 (0-6) % Baso % (Auto) 0.7 (0-2) % Absolute Neuts (auto) 5.4 (1.5-7.7) 10^3/ul Absolute Lymphs (auto) 2.5 (1.0-4.8) 10^3/ul Absolute Monos (auto) 0.8 (0-0.8) 10^3/ul Absolute Eos (auto) 0.1 (0-0.6) 10^3/ul Absolute Basos (auto) 0.1 (0-0.2) 10^3/ul Absolute Nucleated RBC 0 10^3/ul Nucleated RBC % 0 INR (Anticoag Therapy) 1.07 H (0.77-1.02) APTT 37.0 H (26.0-36.3) seconds Lactic Acid 3.5 H* (0.5-2.0) mmol/L Result Diagrams: 04/26/18 05:50 04/26/18 05:50 Lab Statement: Any lab studies that have been ordered have been reviewed, and results considered in the medical decision making process. - Radiology CXR Radiology Interpretation Completed By: Radiologist Summary of Radiographic Findings: IMPRESSION: NO ACTIVE CARDIOPULMONARY DISEASE IS NOTED. ED provider has reviewed this report. - CT BRAIN CT CT Interpretation Completed By: Radiologist Summary of CT Findings: IMPRESSION: NO ACUTE INTRACRANIAL PATHOLOGY. ED provider has reviewed this report. - EKG 1435 Cardiac Rate: NL - 78bpm EKG Rhythm: Atrial Fibrillation - with flutter Summary of EKG Findings: An EKG at 1435 reveals nml IVCT, nml QTc, nml axis, intermittent paced beats. Re-Evaluation - Re-Evaluation 1 Re-Evaluation Time: 16:18 Change: Unchanged Comment: Discussing plan to further evaluate pt for possible admission. Pt has mentioned that his pacemaker batteries need to be replaced soon. Flutter waves visible on monitor. BP is 144/85. HR is 69 bpm. Complex Multi-Symp Course/Dx Course Of Treatment: Pt is a 88 y/o M presents with episodes of a-fib and elevated blood sugars first noticed this afternoon at Dr. Inman's office. Pt was in the office for a DM check, the pt's glucose numbers were high on the last visit as well. Pt was picked up by EMS from the provider's office. Per Dr. Inman's HPI: Pt reported a morning glucose of 270. Pt received long-acting Lantus, and felt dizzy afterwards. They performed an EKG in office and it showed flipped T-waves in inferior leads, flutter waves and paced beats. At bedside, pt denies CP, fever, chills, diaphoresis. He states the dizziness felt like an episode of low sugar. He sees Dr Ortiz, asset analyst. Provider aware of elevated Lactic Acid of 3.5 at 1531. Labs also show an elevated INR and APTT , Glucose: 378, BNP: 152, and low sodium, chloride and magnesium. UA shows 3+ glucose and low specific gravity. Imaging studies were unremarkable. An EKG at 1435 reveals afib with flutter, nml IVCT, nml QTc, nml axis, intermittent paced beats. Allergies noted, high blood pressure noted. UA reviewed. Pt medications reviewed this visit. Pt is admitted for further evaluation of atrial arrythmyia and glucose control. - Diagnoses Differential Diagnoses/HQI/PQRI: Cardiac Ischemia, Metabolic Abnormality, Sepsis Provider Diagnoses: Atrial fibrillation, Poorly controlled type 2 diabetes mellitus - Physician Notifications Discussed Care Of Patient With: Danna Laughlin - hospitalist Time Discussed With Above Provider: 16:13 Instructed by Provider To: Admit As Inpatient - Critical Care Time Critical Care Time: 30-74 min - 30 mins Discharge - Sign-Out/Discharge Documenting (check all that apply): Patient Departure - ADMIT - Discharge Plan Condition: Good Disposition: ADMITTED TO [facility] - Billing Disposition and Condition Condition: GOOD Disposition: Admitted to [facility] - Attestation Statements Document Initiated by Scribe: Yes Documenting Scribe: Melissa Knapp Provider For Whom Scribe is Documenting (Include Credential): Dr. Shweta Talley MD Scribe Attestation: Melissa Souza, scribed for Dr. Shweta Talley MD on 04/30/18 at 2028. Scribe Documentation Reviewed: Yes Provider Attestation: The documentation as recorded by the scribe, Melissa Knapp accurately reflects the service I personally performed and the decisions made by me, Dr. Shweta Talley MD
[2018-04-24 15:32] LABS: EGFR Non-African American 75.2 (>60)
[2018-04-24] MEDS ORDERED: Magnesium Sulfate 1 GM IV* 1 GM/100 ML BAG IV ONE (15:50)
[2018-04-24 16:50] LABS: Urine Appearance Clear; Urine Blood Negative (Negative); Urine Color Straw; Urine Ketones Negative (Negative); Urine Protein Negative (Negative); Urine Specific Gravity 1.002 (1.010-1.030); Urine Urobilinogen Negative (Negative)
[2018-04-24] MEDS ORDERED: Dextrose 50% Syringe 50 ML* 25 GM/50 ML SYRINGE IV PUSH PRN (18:54)
[2018-04-24] MEDS: Diltiazem CD CAP* 120 MG PO SCH (21:26)
[2018-04-24] MEDS: Metoprolol Tartrate TAB* 25 MG PO SCH (21:27)
[2018-04-24] MEDS: Insulin LISPRO* 1 UNITS UNIT SUBCUT SCH (21:29)
[2018-04-24] MEDS: Apixaban* 5 MG TAB PO SCH (21:36)
--- NOTE | 2018-04-25 00:41 | HP ---
CC: Dr. Inman; Dr. Ortiz * HISTORY AND PHYSICAL: DATE OF ADMISSION: 04/24/18 PRIMARY CARE PROVIDER: Dr. Inman. PERSONNEL AND PAYROLL TECHNICIAN: Dr. Ortiz. ATTENDING PHYSICIAN: Dr. Danna Laughlin * (dictated by Hodan Hernandes NP). CHIEF COMPLAINT: Weakness and hyperglycemia. HISTORY OF PRESENT ILLNESS: The patient is an 88-year-old male with a past medical history of SVT, AFib on Eliquis, status post pacemaker; hypertension; CAD; hyperlipidemia; PAT on CPAP at night; BPH and diabetes, who presented to the ED after he had an episode of weakness and hyperglycemia in Dr. Inman' s office today. The patient reports that he has diabetes for about 20 years, controlled by oral agents, but last week Dr. Inman told him he needed tigher glucose control and it was time to start insulin. He received one dose of insulin last week which he tolerated. He then came back to the office this week to get instructed on starting a daily insulin regimen. The patient had a morning blood glucose of 270 and received 10 units of Lantus. The patient then went on to do PFTs to test for COPD and reports that he received some kind of nebulizer treatments after which he felt shaky/weak and reported that this was a similar feeling to when he had had episodes of hypoglycemia in the past. He was given candy and then felt more like his usual self. He then went back to Dr. Inman's office and had another episode where he felt like he was hypoglycemic again. He felt shaky with cloudy thoughts. He was again given candy and felt better. He was placed on a cardiac care unit nurse at this time which showed AFib. An EKG was done which showed a possible T-wave inversion in leads II, III, and AVF. EMS was called and he was brought to the ED. Prior to the incident the patient was in his usual state of health today. He had no recent illnesses. No shortness of breath at rest. He does have baseline shortness of breath with exertion, but he says that this is unchanged from his baseline. He reports no lower extremity swelling or chest pain. No palpitations. No feeling like his heart was racing. He has no nausea, vomiting, or abdominal pain. No cough. No dysuria. In the ED, the patient had a troponin drawn which was negative. He had an EKG which showed paced rhythm with possible underlying AFib. There were isolated T-wave inversions in lead III and aVL. Of note, the patient did have a recent full cardiac workup in February including a Lexiscan stress test that was determined to be low risk. He also had an echo with a normal EF. The patient's vitals in the ED were stable. He was afebrile and systolic blood pressure in the 140s. The patient had a UA that showed 3+ glucose and his blood glucose in the ED was 378. The patient also underwent a brain CT which showed no acute intracranial pathology. Hospitalist team was asked to evaluate this patient for admission for hyperglycemia and further workup of his episode of weakness. PAST MEDICAL HISTORY: SVT, AFib status post pacemaker, hypertension, coronary artery disease, hyperlipidemia, PAT on CPAP at night, BPH. PAST SURGICAL HISTORY: History of multiple stents, hernia repair, pacemaker placement, and hemorrhoid surgery. HOME MEDICATIONS: The patient's home medications include: 1. Calcium, magnesium, and vitamin 1 tab p.o. daily. 2. Metamucil 1 pack p.o. daily. 3. Protonix 10 mg p.o. daily. 4. Nitroglycerin 2.5 mg patch 1 patch transdermal daily. 5. Vitamin D 400 units p.o. daily. 6. Multivitamin 1 tab p.o. daily. 7. Metoprolol tartrate 12.5 mg p.o. b.i.d. 8. B2, vitamin A, C, E, mineral tab 1 tab p.o. b.i.d. 9. Glipizide/metformin 5/500 one tab p.o. t.i.d. 10. Finasteride 5 mg p.o. daily. 11. Calcium 500 mg p.o. daily. 12. Plavix 75 mg p.o. q.a.m. 13. Lipitor 40 mg p.o. daily. 14. Eliquis 5 mg p.o. daily. 15. Diltiazem ER 120 mg p.o. b.i.d. ALLERGIES: The patient has a documented allergy to PENICILLINS. FAMILY HISTORY: The patient reports a family history of heart disease in his mother and brother. His brothers had diabetes and the patient denies a family history of cancer. SOCIAL HISTORY: The patient does not currently smoke cigarettes. He reports that in his youth he used to smoke cigarettes only in the summer. The patient endorses rare alcohol use. The patient would like to be a DNR, but would be amenable to a trial period of intubation. See DARIEN for more details. The patient's medical decision maker would be his daughter, Morenita Guerra. REVIEW OF SYSTEMS: I performed a 14-point review of systems. All the pertinent positives and negatives are mentioned in the history of present illness. The remaining review of systems are negative. PHYSICAL EXAMINATION GENERAL APPEARANCE: The patient is alert, pleasant, and appears to be in no acute distress. VITAL SIGNS: Temperature 97.7, heart rate 64, blood pressure 147/80, respiratory rate 18, pulse ox 96% on room air. HEENT: Normocephalic, atraumatic. Pupils are equal, round, and reactive to light and accommodation. Extraocular movements are intact. NECK: Supple. No lymphadenopathy noted. No JVD appreciated. RESPIRATORY: No accessory muscle use. Lungs are clear to auscultation. Normal work of breathing. CARDIAC: Regular rate and rhythm. S1 and S2 present. No murmurs, rubs, or gallops heard. ABDOMEN: Soft, nontender, nondistended. Bowel sounds x4. EXTREMITIES: There is no lower extremity edema. DP and PT pulses were 2+ and symmetric. MUSCULOSKELETAL: There is no clubbing or cyanosis noted. The patient exhibited 5/5 strength in all 4 extremities. NEUROLOGICAL: The patient is alert and oriented x3. No facial droop appreciated. No pronator drift appreciated. PSYCH: The patient is calm and cooperative. SKIN: There are no rashes or abnormalities seen. DIAGNOSTIC STUDIES/LAB DATA: White blood cell count 8.8, RBC 4.56, hemoglobin 14.5, hematocrit 42, MCV 93, MCH 32, MCHC 34, RDW 14, platelet count 225, MPV 8.7, neutrophil percent 61.5, lymph percent 27.8, mono percent 8.8, eosinophil percent 1.2, baso percent 0.7. INR 1.07. APTT 37.0. Sodium 134, potassium 4.1 , chloride 97, carbon dioxide 27, anion gap 10, BUN 16, creatinine 0.95, glucose 378, lactic acid 3.5, calcium 9.9, magnesium 1.7. Total bili 0.5, AST 20, ALT 26, alk phos 70. Total creatinine kinase 101. Troponin 0.01. CRP less than 1. BNP 152. Total protein 7.3, albumin 4.5, globulin 2.8, albumin/ globulin ratio 1.6. TSH 2.82. Urine pertinent positives include urine glucose of 3+. DIAGNOSTICS: Chest x-ray, no active cardiopulmonary disease noted. Brain CT, no acute intracranial pathology. EKG, rate in the 70s with intermittent paced beats with underlying AFib. ASSESSMENT: The patient is an 88-year-old male with past medical history of atrial fibrillation status post pacemaker, coronary artery disease, and diabetes who presented to the ED after having an episode of weakness and hyperglycemia. The patient will be admitted to the hospital service for additional workup of this episode. 1. Weakness. The patient described his episodes as similar to how he feels when he is hypoglycemic. They resolved with eating candy/juice, however pt was never noted to be hypoglycemic and was infact hyper glycemis. Cause could be multifactorial. One possible contributing factor is his hyperglycemia and UA with 3+ glucose. The patient does report urinating large volumes recently and it is possible that he had some orthostatic hypotension. We will check his orthostatics while he is admitted. The patient also had these episodes after completing PFTs. It is possible that this abnormal breathing made him lightheaded and contributed to these episodes. The patient also received long- acting insulin and it is possible that a combination of these factors contributed to this episode. Of note, the patient is afebrile in the ED with no leukocytosis, so infectious etiology is less likely. The patient has a troponin of 0.01 and had a recent negative cardiac workup. So, a cardiology cause is also less concerning, however we will monitor him on tele for any new arrhythmias and interrogate his pacemaker. 2. Hyperglycemia. The patient's glucose in the ED was 378 and he had a UA with 3+ glucose. We will collect hemoglobin A1c. The patient will be started on Lispro sliding scale and fingersticks a.c. and h.s. He will be on a carb controlled diet. The patient received 10 units of Lantus today and was still hyperglycemic despite feeling hypoglycemic. Based on HGA1c and fingersticks, can make plan for long-term insulin management tomorrow. 3. History of atrial fibrillation/SVT with pacemaker. We will interrogate the patient's pacemaker to see if he has had any recent episodes of atrial fibrillation with rapid ventricular response or other supraventricular tachycardia which could cause episodes of weakness. Of note, the patient did not have any chest pain, shortness of breath, or feelings of palpitations. He specifically says that he did not feel dizzy, mostly that he felt was shaky. The patient also did have a recent cardiac workup, which was negative including a Lexiscan stress test and an echo which showed a normal EF. The patient notes that he was told that his pacemaker battery will need to be changed soon so, when the pacemaker is interrogated, we can also see if this should be done during this admission. I will continue the patient's anticoagulation with Eliquis as well as his rate control with diltiazem ER and metoprolol. 4. History of coronary artery disease. I will continue the patient's Lipitor and Plavix and nitro patch. 5. History of obstructive sleep apnea. I will continue the patient's CPAP at night. 6. Benign prostatic hyperplasia. I will continue the patient's Proscar. 7. Fluids, electrolytes, and nutrition. The patient's magnesium is 1.7 in the ED which was repleted. The patient did have a lactic acid of 3.5. The patient does not have any signs of an active infection. He is afebrile with a leukocytosis and denies any dysuria, cough, or other symptoms associated with an infection. This could be dehydration in the setting of volume loss with elevated glucose level. I will recheck this in the morning. 8. Diet: The patient is on a carb controlled diet. 9. DVT prophylaxis: The patient is anticoagulated with Eliquis. 10. Code status: The patient wishes to be DNR with a trial period of intubation if necessary. Please see MOLST for details. 11. Disposition: Observation. I anticipate discharge to home when medically stable. TIME SPENT: Time spent for this admission was 60 minutes and 35 minutes was spent with the patient discussing medications, past medical history, and events leading up to the arrival today and performing a physical examination. The case has been reviewed with the attending, Dr. Laughlin, who agrees with the plan of care. HODAN HERNANDES, [employer] [id number]/[facility] #: [id number] [facility] HOSPITALMargarita
[2018-04-25] MEDS: Melatonin 3 MG TAB PO SCH ×2 (02:29→23:13)
[2018-04-25 06:49] LABS: ABS Basophils 0.1 10^3/ul (0-0.2); ABS Eosinophils 0.2 10^3/ul (0-0.6); ABS Lymphocytes 2.3 10^3/ul (1.0-4.8); ABS Monocytes 0.8 10^3/ul (0-0.8); ABS Neutrophils 4.3 10^3/ul (1.5-7.7); ABS Nucleated RBC 0 10^3/ul; Hematocrit 40 % (42-52); Hemoglobin 13.7 g/dl (14.0-18.0); Lymphocyte % 29.5 % (25-47); Mean Corpuscular HGB Conc 34 g/dl (31-36); Mean Corpuscular Hemoglobin 32 pg (27-31); Mean Corpuscular Volume 93 fL (80-94); Mean Platelet Volume 8.3 fL (7.4-10.4); Nucleated Red Blood Cells % 0; Platelet Count 199 10^3/ul (150-450); Red Blood Count 4.33 10^6/ul (4.00-5.40); Red Cell Distribution Width 14 % (10.5-15); White Blood Count 7.6 10^3/ul (3.5-10.8)
[2018-04-25] MEDS: Apixaban* 5 MG TAB PO SCH ×2 (09:40→20:11)
[2018-04-25] MEDS: Diltiazem CD CAP* 120 MG PO SCH ×2 (09:41→19:59)
[2018-04-25] MEDS: Finasteride TAB* 5 MG PO SCH (09:41)
[2018-04-25] MEDS: Atorvastatin* 40 MG TAB PO SCH (09:41)
[2018-04-25] MEDS: Psyllium PAK PO SCH (09:42)
[2018-04-25] MEDS: Metoprolol Tartrate TAB* 25 MG PO SCH ×2 (09:42→20:00)
[2018-04-25] MEDS: Clopidogrel TAB* 75 MG PO SCH (09:42)
[2018-04-25] MEDS: Insulin LISPRO* 1 UNITS UNIT SUBCUT SCH ×5 (09:43→20:46)
[2018-04-25] MEDS: Nitroglycerin 0.1 mg/Hr PATCH* (2.5 MG) TRANSDERM SCH (09:51)
[2018-04-25] MEDS: PTO: Pantoprazole TAB (NF) 20 MG TAB PO SCH (09:53)
[2018-04-25] MEDS ORDERED: Dextrose 50% Syringe 50 ML* 25 GM/50 ML SYRINGE IV PUSH PRN (16:18)
--- NOTE | 2018-04-25 16:39 | PN ---
Subjective Date of Service: 04/25/18 Interval History: Pt seen and examined. Meds and labs reviewed. Has had some SOB in the clinic while diagnosed with hyperglycemia-->ER CC: N/A ROS: Denied [place]/dizziness, F/C, N/V, CP, SOB, increased cough, sputum production , abd pain, diarrhea, constipation, dysuria, myalgias, arthralgias, throat pain , and new skin lesions. The rest of the 14 point ROS are unremarkable. PHYSICAL EXAM: GEN APPEARANCE: Awake, not in acute distress HEENT: NC/AT, PERRLA, moist oral mucosa, (-) throat erythema NECK: Soft, supple, (-) cervical LAD, (-)JVD HEART: S1S2 WNL, RRR, No MRG CHEST: CTA, BL, GAE, No W/R/R ABD: Soft, ND/NT, NABS 4x Q EXT: No C/C/E SKIN: Warm to touch PSYCH: No active psychosis, hallucinations, depression, SI/HI Objective Active Medications: Apixaban (Eliquis*) 5 mg PO BID [facility] Last Admin: 04/25/18 09:40 Dose: 5 mg Atorvastatin Calcium (Lipitor*) 40 mg PO DAILY [facility] Last Admin: 04/25/18 09:41 Dose: 40 mg Clopidogrel Bisulfate (Plavix Tab*) 75 mg PO QAM [facility] Last Admin: 04/25/18 09:42 Dose: 75 mg Dextrose (D50w Syringe 50 Ml*) 12.5 gm IV PUSH .FOR FS < 60 - SS PRN PRN Reason: FS < 60 Diltiazem HCl (Cardizem Cd Cap*) 120 mg PO BID [facility] Last Admin: 04/25/18 09:41 Dose: 120 mg Finasteride (Proscar Tab*) 5 mg PO DAILY [facility] Last Admin: 04/25/18 09:41 Dose: 5 mg Insulin Glargine (Lantus(*)) 12 units SUBCUT Q24H [facility] Insulin Human Lispro (Humalog*) 0 units SUBCUT ACHS [facility]; Protocol Last Admin: 04/25/18 12:31 Dose: 4 units Insulin Human Lispro (Humalog*) 4 units SUBCUT AC [facility] Melatonin (Melatonin) 3 mg PO BEDTIME [facility] Last Admin: 04/25/18 02:29 Dose: 3 mg Metoprolol Tartrate (Lopressor Tab*) 12.5 mg PO BID [facility] Last Admin: 04/25/18 09:42 Dose: 12.5 mg Nitroglycerin (Nitroglycerin 2.5 Mg Patch*) 1 patch TRANSDERM DAILY [facility] Last Admin: 04/25/18 09:51 Dose: 1 patch Pantoprazole Sodium (Protonix Tab (Nf)) 10 mg PO DAILY [facility] Last Admin: 04/25/18 09:53 Dose: Not Given Pharmacy Profile Note (Nitro Patch/Oint Remove*) 1 note PATCH OFF 2100 [facility] Psyllium Hydrophilic Mucilloid (Metamucil Zen*) 1 pkt PO DAILY [facility] Last Admin: 04/25/18 09:42 Dose: 1 pkt Vital Signs - 8 hr 04/25/18 04/25/18 04/25/18 10:59 11:36 13:05 Temperature 98.4 F 98.1 F Pulse Rate 73 61 60 Respiratory 18 16 16 Rate Blood Pressure 159/89 146/67 134/67 (mmHg) O2 Sat by Pulse 96 99 99 Oximetry 04/25/18 15:15 Temperature 98.1 F Pulse Rate 64 Respiratory 16 Rate Blood Pressure 133/71 (mmHg) O2 Sat by Pulse 100 Oximetry Oxygen Devices in Use Now: None Result Diagrams: 04/25/18 06:16 04/24/18 14:40 Additional Lab and Data: Lab Results 04/24/18 04/24/18 04/24/18 Range/Units 14:39 14:40 14:40 WBC 8.8 (3.5-10.8) 10^3/ul RBC 4.56 (4.00-5.40) 10^6/ul Hgb 14.5 (14.0-18.0) g/dl Hct 42 (42-52) % MCV 93 (80-94) fL MCH 32 H (27-31) pg MCHC 34 (31-36) g/dl RDW 14 (10.5-15) % Plt Count 225 (150-450) 10^3/ul MPV 8.7 (7.4-10.4) fL Neut % (Auto) 61.5 (38-83) % Lymph % (Auto) 27.8 (25-47) % Imperial % (Auto) 8.8 H (0-7) % Eos % (Auto) 1.2 (0-6) % Baso % (Auto) 0.7 (0-2) % Absolute Neuts (auto) 5.4 (1.5-7.7) 10^3/ul Absolute Lymphs (auto) 2.5 (1.0-4.8) 10^3/ul Absolute Monos (auto) 0.8 (0-0.8) 10^3/ul Absolute Eos (auto) 0.1 (0-0.6) 10^3/ul Absolute Basos (auto) 0.1 (0-0.2) 10^3/ul Absolute Nucleated RBC 0 10^3/ul Nucleated RBC % 0 INR (Anticoag Therapy) 1.07 H (0.77-1.02) APTT 37.0 H (26.0-36.3) seconds Lactic Acid 3.5 H* (0.5-2.0) mmol/L Assess/Plan/Problems-Billing Assessment: - Patient Problems (1) Diabetes 1.5, managed as type 2 Current Visit: Yes Status: Acute Code(s): E10.9 - TYPE 1 DIABETES MELLITUS WITHOUT COMPLICATIONS SNOMED Code(s): 372489073 Comment: -Uncontrolled -Will place pt on long acting and short acting insulin -Continue ISS for breakthroughs -Likely caused of reported weakness (2) SOB (shortness of breath) Current Visit: Yes Status: Acute Code(s): R06.02 - SHORTNESS OF BREATH SNOMED Code(s): 009318978 Comment: -Not currently in SOB, but mentioned that is the main reason he was sent to the ED by his PCP -Reviewed telemetry this AM but had some paced rhythm -Will add-on D-dimer -Later reported by RN that pt had 32 beats of Vtach at a rate of 180s, however, pt was asymptomatic when checked -Consider discussing case with cards in AM for possible event loop recorder? (3) Atrial fibrillation Current Visit: Yes Status: Acute Code(s): I48.91 - UNSPECIFIED ATRIAL FIBRILLATION SNOMED Code(s): 09232337 Comment: -Continue Diltiazem and Metoprolol -Continue Eliquis (4) CAD (coronary artery disease) Current Visit: Yes Status: Acute Code(s): I25.10 - ATHSCL HEART DISEASE OF [place] CORONARY ARTERY W/O ANG PCTRS SNOMED Code(s): 75896213 Comment: -Continue Plavix and Metoprolol (5) PAT (obstructive sleep apnea) Current Visit: Yes Status: Acute Code(s): G47.33 - OBSTRUCTIVE SLEEP APNEA ( ADULT) (PEDIATRIC) SNOMED Code(s): 20376693 Comment: -Continue CPAP (6) DVT prophylaxis Current Visit: Yes Status: Acute Code(s): KUY1302 - SNOMED Code(s): 111663063 Comment: -As above Status and Disposition: -Possible D/C in 1-2 days
[2018-04-25] MEDS ORDERED: Insulin GLARGINE(*) 1 UNITS UNIT SUBCUT SCH ×2 (17:00)
[2018-04-25 18:49] LABS: EGFR Non-African American 82.1 (>60)
[2018-04-25] MEDS ORDERED: Nitro Patch/OINT Remove PATCH OFF SCH (21:00)
[2018-04-26] MEDS ORDERED: Melatonin 3 MG TAB PO SCH (01:30)
[2018-04-26 06:18] LABS: Hematocrit 41 % (42-52); Mean Corpuscular HGB Conc 34 g/dl (31-36); Mean Corpuscular Hemoglobin 32 pg (27-31); Mean Corpuscular Volume 93 fL (80-94); Mean Platelet Volume 8.9 fL (7.4-10.4); Platelet Count 213 10^3/ul (150-450); Red Blood Count 4.44 10^6/ul (4.00-5.40); Red Cell Distribution Width 14 % (10.5-15); White Blood Count 7.5 10^3/ul (3.5-10.8)
[2018-04-26] MEDS: Insulin LISPRO* 1 UNITS UNIT SUBCUT SCH ×4 (08:45→14:16)
[2018-04-26] MEDS: Apixaban* 5 MG TAB PO SCH (08:47)
[2018-04-26] MEDS: Metoprolol Tartrate TAB* 25 MG PO SCH (08:47)
[2018-04-26] MEDS: Finasteride TAB* 5 MG PO SCH (08:47)
[2018-04-26] MEDS: Clopidogrel TAB* 75 MG PO SCH (08:47)
[2018-04-26] MEDS: Atorvastatin* 40 MG TAB PO SCH (08:47)
[2018-04-26] MEDS: Diltiazem CD CAP* 120 MG PO SCH (08:47)
[2018-04-26] MEDS: Nitroglycerin 0.1 mg/Hr PATCH* (2.5 MG) TRANSDERM SCH (08:48)
[2018-04-26] MEDS: Psyllium PAK PO SCH (08:48)
[2018-04-26] MEDS: PTO: Pantoprazole TAB (NF) 20 MG TAB PO SCH (08:48)
[2018-04-26] MEDS ORDERED: Insulin LISPRO* 1 UNITS UNIT SUBCUT SCH (11:30)
[2018-04-26 12:19] VITALS: BP 149/62
[2018-04-26] MEDS ORDERED: Insulin GLARGINE(*) 1 UNITS UNIT SUBCUT SCH (17:00)
[2018-04-26] MEDS ORDERED: Metoprolol Tartrate TAB* 25 MG PO SCH ×2 (21:00)
--- NOTE | 2018-04-27 03:20 | DS ---
CC: Jordon Flannery MD; Shweta Talley MD; Monica Inman MD DISCHARGE SUMMARY: DATE OF ADMISSION: 04/24/18 DATE OF DISCHARGE: 04/26/18 DISCHARGE DIAGNOSES: 1. Diabetes mellitus, uncontrolled, improved control. 2. Atrial fibrillation with occasional supraventricular tachycardia with aberrancy. 3. History of coronary artery disease. 4. History of obstructive sleep apnea, on CPAP. HISTORY OF PRESENT ILLNESS/HOSPITAL COURSE: The patient is an 88-year-old gentleman with h istory of SVT, AFib on Eliquis status post pacemaker placement, hypertension, and CAD who was being e valuated for hyperglycemia in Dr. Inman's office where he mentioned that while he was being eval uated for his hyperglycemia due to his uncontrolled diabetes, he was also having some breathing testi ng done and describes what appears to be some form of provocative testing that he needed nebulization s for after. He mentions that after this breathing test has been done, he felt as if he was about to pass out. He was then admitted to our facility due to his uncontrolled diabetes as well as his feel ing of weakness. He was placed on insulin on admission and was then further titrated, which improved his fingersticks, but still in the high 190s prior to discharge and hence his insulin regimen was fu rther increased by about 10% and he will be placed back on oral metformin at a maximum dose on discha rge. We will discontinue sulfonylurea. In addition, during his hospital stay, he was placed on telem etry and there was a one-time run of a 31 beat tachycardia, which on further review looks like an SVT with aberrancy similar to his previous rhythm in the past. An interrogation of pacemaker could not be done during this admission; however, the results of previous recent investigation this month and p revious month was reviewed with Dr. Goetz who mentions that he has been having SVTs as well in the pa st consistent with his history and hence at this time, Dr. Goetz mentions to have the patient follow up with Dr. Ortiz and to further titrate his beta-blockers, which has already been done this morning given his hypertension. The patient was reminded to follow up and/or call his PCP within 3 days post DC and follow up with Dr Star Ortiz in 1 week. He was reminded that his beta-odalis has been further adjusted prior to his dis charge given his high blood pressure and his occasional SVT aberrancy. He was also informed that thi s may be further titrated by either his PCP and/or Dr. Ortiz on followup. He was advised to check h is fingersticks before meals at least 3 times a day and record and show this data to his PCP on follo wup. He was advised to call his PCP if his fingerstick blood sugar is still in the 200s or less than 70. He was advised that if his symptoms resume or develop new ones or feel unwell for any reason, t o call his PCP first and if his PCP cannot entertain him due to scheduling issues alone, to call [facility] if the issue is considered nonemergent. He was advised to call my office regardi jarek any questions, concerns, or further clarifications regarding his discharge plans and/or prescripti ons and to take his medications as prescribed. REVIEW OF SYSTEMS: The patient denied any recent headaches, dizziness, fevers, chills, nausea, vomit ing, chest pain, shortness of breath, increased coughing or sputum production, abdominal pain, diarrh ea, constipation, pain and/or increased frequency on urination, myalgias, arthralgias, throat pain or new skin lesions. The rest of the 14-point review of systems is otherwise unremarkable. PHYSICAL EXAMINATION: Shows the most recent vital signs of records with blood pressure of 149/62, 98 .1 degrees Fahrenheit, 59 beats per minute heart rate, 16 per minute respiratory rate, saturating at 100% on room air. General Appearance: The patient is awake, alert, and oriented x3, not in acute di stress. HEENT: Normocephalic, atraumatic. PERRLA. Extraocular muscles intact. Negative for icteru s. Moist oral mucosa. Negative throat erythema. Neck is soft, supple with no cervical lymphadenopa thy. No JVD. Heart: S1, S2 within normal limits. Regular rate and rhythm. No murmurs, rubs, and g allops. Chest: Clear to auscultation bilaterally. Good air entry. No wheezes, rales, or rhonchi. Abdomen is soft, nondistended, nontender. Normoactive bowel sounds x4 quadrants. Extremities: No c yanosis, clubbing, or edema. Psychiatric: No active psychosis, depression, suicidal nor homicidal i deation. Skin is warm to touch. TIME SPENT: The total time spent evaluating the patient, reviewing pertinent data, and appropriate d ocumentation is 65 minutes. [id number]/[facility] #: [id number]
== END 2018-04-26 15:23 | disposition home or self-care (01) ==
LOC: ED 14:12 → MEDTELE 18:23
PROVIDERS: ADMIT Internal Medicine; ATTEND Student in an Organized Health Care Education/Training Program
DX: E13.65 Other specified diabetes mellitus with hyperglycemia (principal); I48.91 Unspecified atrial fibrillation; I47.1 Supraventricular tachycardia; I25.10 Atherosclerotic heart disease of native coronary artery without angina pectoris; G47.33 Obstructive sleep apnea (adult) (pediatric); R06.02 Shortness of breath; Z99.89 Dependence on other enabling machines and devices; R53.1 Weakness; Z95.5 Presence of coronary angioplasty implant and graft; Z79.82 Long term (current) use of aspirin; Z87.891 Personal history of nicotine dependence; Z79.01 Long term (current) use of anticoagulants
CPT/HCPCS: 36415; 70450; 71045; 80048; 80053; 81003; 82550; 83036; 83605; 83735; 83880; 84100; 84443; 84484; 85025; 85027; 85379; 85610; 85730; 86140; 93005; 96365; 96372; 99284; A9270-GY; G0378; J3475

== ENCOUNTER → 2018-08-08 | Day surgery (SDC) | payer MEDICARE, OTHER ==
[~2018-08-08] MED LIST: Clindamycin 600 MG/D5W BAG(*) 600 MG/50 ML BAG IV ONE; Flumazenil* 0.1 MG/ML 5 ML MDV ONE; Lidocaine 1% INJ* 10 MG/ML 30 ML SDV ONE; Midazolam* 1 MG/ML 5 ML VIAL (5 MG) ONE; Naloxone* 0.4 MG/ML 1 ML VIAL ONE; fentaNYL* 50 MCG/ML 2 ML VIAL (100 MCG VIAL) ONE
--- NOTE | 2018-08-08 12:57 | OP ---
CC: Dr. Jay Rich; Dr. Umberto Ortiz * DATE OF OPERATION: 08/08/18 - [facility] CATH DATE OF : 34 SURGEON: Nereyda Soto MD PRE-OP DIAGNOSES: Symptomatic bradycardia and pacemaker replacement, persistent atrial fibrillation. POST-OP DIAGNOSES: Symptomatic bradycardia and pacemaker replacement, persistent atrial fibrillation. OPERATIVE PROCEDURE: Pacemaker generator change, dual chamber. INDICATIONS: The patient was in AFib and it has been persistent and cardioversion not able to be coordinated with the patient's travel, but tentative plans for cardioversion in the future. The patient also has coronary artery disease; therefore, the decision was made with Dr. Ortiz, his regular big data platform architect, to keep him with dual-chamber pacer. The indications, risks, and benefits of the procedure were discussed with Dr. Ortiz and by myself the day of the procedure and he was amenable to proceeding. The increased risk of infection from diabetes was discussed and increased risk of bleeding on a combination of Plavix and Eliquis was discussed. DESCRIPTION OF PROCEDURE: The pacer site is in the left subclavian fossa, my initials were placed there, this area was then prepped and draped in the usual sterile fashion and a time-out procedure was called. The patient received a total of 5 mg of Versed and 50 mcg of fentanyl for sedation as well as 8 cc of 1% lidocaine for local anesthesia. Following local anesthesia, using a 10 blade knife, a 3 cm incision was made over the existing device and using Bovie and blunt dissection, was extended to the level of the device. Using Metzenbaum scissors, the mi was made and the incision was extended medially and laterally taking care to avoid any leads. The device was then removed from the pocket. The pocket was intact, unremarkable. The leads were removed from the device. Pacing and sensing thresholds were checked and found to be good. The pocket was then copiously irrigated, as were the leads. The leads were then attached to the new generator. The generator was placed in the pocket. It was closed with a layer of interrupted 2-0 resorbable suture, then a layer of running 2-0 resorbable suture followed by 4-0 resorbable suture, geno, and external dressing. FINDINGS: The explanted device was a [employer] model 5826, serial #[id number]. The newly implanted generator is the [employer] model [id number], serial #[id number]. The existing leads were in the atrium, a [employer] model 13333QF/52, serial number [id number], the ventricular lead is a [employer] model 1646T/58, serial number [id number]. AFib P-waves were sensed at 1 millivolt with an atrial lead impedance of 389 ohms and no pacing threshold could be checked. The R-waves were sensed at 13.3 millivolts with a ventricular lead impedance of 552 ohms and a ventricular pacing threshold of 0.9 volts at 0.4 milliseconds. Current programming is DDIR in mode switch. The patient was hemodynamically stable throughout the procedure and there were no complications. Currently, blood pressure 123/74. He is in AFib, intermittently pacing with rates of 60 to 70 beats a minute. [id number]/[facility] #: [id number] JOYA
[2018-08-08 13:38] VITALS: BP 145/83
== END | disposition home or self-care (01) ==
LOC: CHICATH 09:17
PROVIDERS: ATTEND Specialist
DX: Z45.018 Encounter for adjustment and management of other part of cardiac pacemaker (principal); I48.1 Persistent atrial fibrillation; I25.119 Atherosclerotic heart disease of native coronary artery with unspecified angina pectoris; I10 Essential (primary) hypertension; I49.5 Sick sinus syndrome; Z79.01 Long term (current) use of anticoagulants; Z79.4 Long term (current) use of insulin; Z79.899 Other long term (current) drug therapy
CPT/HCPCS: 33228; 88300; 99156; 99157; C1785; J2250; J2310; J3010

== ENCOUNTER 2020-01-11 13:53 | Inpatient (IN) ==
[2020-01-11 14:35] LABS: ABS Basophils 0.1 10^3/ul (0-0.2); ABS Eosinophils 0.1 10^3/ul (0-0.6); ABS Lymphocytes 1.9 10^3/ul (1.0-4.8); ABS Neutrophils 5.6 10^3/ul (1.5-7.7); Eosinophil % 1.1 %; Hematocrit 36 % (42-52); Hemoglobin 12.3 g/dL (14.0-18.0); Lymphocyte % 22.1 %; Mean Corpuscular HGB Conc 34 g/dL (31-36); Mean Corpuscular Hemoglobin 32 pg (27-31); Mean Corpuscular Volume 94 fL (80-94); Mean Platelet Volume 8.6 fL (7.4-10.4); Platelet Count 198 10^3/uL (150-450); Red Blood Count 3.78 10^6 /uL (4.18-5.48); Red Cell Distribution Width 14 % (10-15); White Blood Count 8.6 10^3/uL (3.5-10.8)
[2020-01-11 14:55] LABS: Albumin/Globulin Ratio 1.6 (1-3); BUN/Creatinine Ratio 15.7 (8-20); Calcium 9.1 mg/dL (8.6-10.3); EGFR Non-African American 47.9 (>60); Globulin 2.5 g/dL (2-4); Magnesium 1.8 mg/dL (1.9-2.7); Potassium 4.3 mmol/L (3.5-5.0); Total Bilirubin 0.5 mg/dL (0.2-1.0); Total Protein 6.5 g/dL (6.4-8.9)
[2020-01-11 14:57] LABS: Troponin I 0.01 ng/mL (<0.03)
[2020-01-11] MEDS ORDERED: Ondansetron 4 mg VIAL 2 MG/ML 2 ml VIAL IV PRN (16:10)
[2020-01-11] MEDS ORDERED: Magnesium Sulfate IV 1GM/100ML 1 GM/100 ML BAG IV ONE (16:15)
[2020-01-11] MEDS ORDERED: NS 0.9% 1000 ml BAG 1,000 ML IV SCH (16:30)
[2020-01-11] MEDS: Nitro Patch/OINT Remove PATCH TOPICAL SCH (19:15)
[2020-01-11] MEDS ORDERED: Dextrose 50% Syringe 50 ml 25 GM/50 ML SYRINGE IV PUSH PRN (20:23)
[2020-01-11] MEDS ORDERED: Multivitamins/Minera Areds(NF) CAP PO SCH (21:00)
[2020-01-11] MEDS: CMCS:Alfuzosin ER 10 mg TAB.ER (NF) 10 MG TAB.ER PO SCH (21:12)
[2020-01-11] MEDS: Insulin GLARGINE 100 un/ml 10 ml VIAL SUBCUT SCH (21:31)
[2020-01-11] MEDS: hydrALAZINE 20 mg/ml 1 ML Vial IV IV SLOW PU PRN (23:03)
[2020-01-12 05:36] LABS: ABS Eosinophils 0.1 10^3/ul (0-0.6); ABS Lymphocytes 1.8 10^3/ul (1.0-4.8); ABS Monocytes 0.7 10^3/ul (0-0.8); Eosinophil % 1.5 %; Hematocrit 44 % (42-52); Hemoglobin 15.2 g/dL (14.0-18.0); Lymphocyte % 23.7 %; Mean Corpuscular HGB Conc 35 g/dL (31-36); Mean Corpuscular Hemoglobin 33 pg (27-31); Mean Corpuscular Volume 95 fL (80-94); Mean Platelet Volume 8.9 fL (7.4-10.4); Nucleated Red Blood Cells % 0.1; Platelet Count 183 10^3/uL (150-450); Red Blood Count 4.64 10^6 /uL (4.18-5.48); Red Cell Distribution Width 14 % (10-15); White Blood Count 7.8 10^3/uL (3.5-10.8)
[2020-01-12 05:47] LABS: BUN/Creatinine Ratio 15.7 (8-20); Calcium 9.3 mg/dL (8.6-10.3); EGFR African American 78.3 (>60); EGFR Non-African American 64.7 (>60); Potassium 4.1 mmol/L (3.5-5.0)
[2020-01-12] MEDS ORDERED: NS 0.9% 1000 ml BAG 1,000 ML IV SCH (07:45)
[2020-01-12] MEDS ORDERED: Insulin GLARGINE 100 un/ml 10 ml VIAL SUBCUT SCH (09:00)
[2020-01-12 09:14] LABS: INR 1.05 (0.82-1.09)
[2020-01-12] MEDS: Psyllium PAK PO SCH (09:15)
[2020-01-12] MEDS: Multivitamins/Minerals TAB PO SCH (09:15)
[2020-01-12] MEDS ORDERED: Iohexol 300 (CONTRAST) 10 ML SDV ONE (10:31)
[2020-01-12] MEDS: Nitroglycerin 0.1 mg/hr PATCH (2.5 mg) TRANSDERM SCH (10:31)
[2020-01-12] MEDS: Famotidine IV 10 MG/ML 2 ml VIAL (20 mg) IV SLOW PU SCH ×2 (11:38→20:53)
[2020-01-12] MEDS ORDERED: Dextrose 50% Syringe 50 ml 25 GM/50 ML SYRINGE IV PUSH PRN (20:52)
[2020-01-12] MEDS: Insulin GLARGINE 100 un/ml 10 ml VIAL SUBCUT SCH (20:52)
[2020-01-12] MEDS: CMCS:Alfuzosin ER 10 mg TAB.ER (NF) 10 MG TAB.ER PO SCH (20:53)
[2020-01-12] MEDS: Nitro Patch/OINT Remove PATCH TOPICAL SCH (20:59)
[2020-01-12] MEDS: hydrALAZINE 20 mg/ml 1 ML Vial IV IV SLOW PU PRN ×2 (21:01→23:10)
[2020-01-12] MEDS ORDERED: hydrALAZINE 20 mg/ml 1 ML Vial IV ONE (23:06)
[2020-01-13] MEDS: NS 0.9% 1000 ml BAG 1,000 ML IV SCH ×2 (01:00→17:25)
[2020-01-13] MEDS: hydrALAZINE 20 mg/ml 1 ML Vial IV IV SLOW PU PRN (05:58)
[2020-01-13] MEDS ORDERED: Clindamycin 900 MG/D5W BAG 900 MG/50 ML BAG IVPB ONE (09:00)
[2020-01-13] MEDS: Psyllium PAK PO SCH (09:10)
[2020-01-13] MEDS: Multivitamins/Minerals TAB PO SCH (09:24)
[2020-01-13] MEDS: Famotidine IV 10 MG/ML 2 ml VIAL (20 mg) IV SLOW PU SCH ×2 (09:25→19:56)
[2020-01-13] MEDS: Nitroglycerin 0.1 mg/hr PATCH (2.5 mg) TRANSDERM SCH (09:25)
[2020-01-13] MEDS ORDERED: Midazolam 5 mg/5 ml VIAL 1 mg/ml 5 ml VIAL (5 mg) ONE (11:50)
[2020-01-13] MEDS ORDERED: fentaNYL 100 mcg/2 ml 50 MCG/ML VIAL ONE (11:50)
[2020-01-13] MEDS ORDERED: Flumazenil 0.5 mg/5 ml 0.1 MG/ML 5 ml VIAL ONE (11:51)
[2020-01-13] MEDS ORDERED: Lidocaine 1% VIAL 10 MG/ML VIAL ONE (11:51)
[2020-01-13] MEDS ORDERED: Naloxone 0.4 mg VIAL 0.4 mg/ml 1 ml VIAL ONE (11:51)
[2020-01-13] MEDS: CMCS:Alfuzosin ER 10 mg TAB.ER (NF) 10 MG TAB.ER PO SCH (19:56)
[2020-01-13] MEDS: Insulin GLARGINE 100 un/ml 10 ml VIAL SUBCUT SCH (19:57)
[2020-01-13] MEDS: Nitro Patch/OINT Remove PATCH TOPICAL SCH (19:58)
[2020-01-14] MEDS: Psyllium PAK PO SCH (08:36)
[2020-01-14] MEDS: Nitroglycerin 0.1 mg/hr PATCH (2.5 mg) TRANSDERM SCH (08:37)
[2020-01-14] MEDS: Multivitamins/Minerals TAB PO SCH (08:38)
[2020-01-14] MEDS: Famotidine IV 10 MG/ML 2 ml VIAL (20 mg) IV SLOW PU SCH (08:49)
[2020-01-14 12:51] VITALS: BP 131/75
== END 2020-01-14 15:04 | disposition home or self-care (01) | DRG 261 ==
LOC: ED 13:53 → ICU 17:54 → MEDTELE 01-13 16:45
PROVIDERS: ADMIT Internal Medicine; ATTEND Internal Medicine

== ENCOUNTER 2020-10-20 08:28 | Observation (INO) ==
[2020-10-20] MEDS ORDERED: VERAPAMIL 2.5 MG/ML 2 ML VIAL ** 5 mg/2 ml ONE (09:22)
[2020-10-20] MEDS ORDERED: Heparin 1,000 UNIT/ML 10 ml (10,000 UNITS) CATHLAB/DIALYSIS ONE (09:22)
[2020-10-20] MEDS ORDERED: fentaNYL 100 mcg/2 ml 50 MCG/ML VIAL ONE (09:22)
[2020-10-20] MEDS ORDERED: Midazolam 5 mg/5 ml VIAL 1 mg/ml 5 ml VIAL (5 mg) ONE (09:22)
[2020-10-20] MEDS ORDERED: Heparin 2 UNITS/ML 1000 mls 2,000 ML IV ONE (09:23)
[2020-10-20] MEDS ORDERED: Lidocaine 1% VIAL 10 MG/ML VIAL ONE (09:23)
[2020-10-20] MEDS ORDERED: Iohexol 350 (CONTRAST) 200 ML MDV IV ONE ×2 (09:23→10:08)
[2020-10-20] MEDS ORDERED: nitroGLYCERIN DRIP 25,000 MCG/250 ML BTL ONE (09:23)
[2020-10-20] MEDS ORDERED: Bivalirudin 250 MG VIAL ONE (10:04)
[2020-10-20] MEDS ORDERED: NS 0.9% 1000 ml BAG 1,000 ML IV SCH (10:45)
[2020-10-20] MEDS ORDERED: Dextrose 50% Syringe 50 ml 25 GM/50 ML SYRINGE IV PUSH PRN (12:14)
[2020-10-20] MEDS ORDERED: Insulin GLARGINE 100 un/ml 10 ml VIAL SUBCUT SCH (20:00)
[2020-10-20 23:27] LABS: EGFR African American 97.6 (>60); EGFR Non-African American 80.7 (>60)
[2020-10-21 05:57] LABS: ABS Basophils 0.1 10^3/ul (0-0.2); ABS Eosinophils 0.1 10^3/ul (0-0.6); ABS Lymphocytes 1.9 10^3/ul (1.0-4.8); ABS Monocytes 0.8 10^3/ul (0-0.8); ABS Neutrophils 5.4 10^3/ul (1.5-7.7); Eosinophil % 1.8 %; Hematocrit 39 % (42-52); Hemoglobin 13.4 g/dL (14.0-18.0); Lymphocyte % 22.7 %; Mean Corpuscular HGB Conc 35 g/dL (31-36); Mean Corpuscular Hemoglobin 33 pg (27-31); Mean Corpuscular Volume 97 fL (80-94); Mean Platelet Volume 8.7 fL (7.4-10.4); Platelet Count 211 10^3/uL (150-450); Red Blood Count 4.01 10^6 /uL (4.18-5.48); Red Cell Distribution Width 14 % (10-15); White Blood Count 8.3 10^3/uL (3.5-10.8)
[2020-10-21 06:13] LABS: ALT 33 U/L (7-52); Albumin 4.1 g/dL (3.2-5.2); Albumin/Globulin Ratio 1.5 (1-3); Alkaline Phosphatase 66 U/L (34-104); Blood Urea Nitrogen 16 mg/dL (6-24); CO2 Carbon Dioxide 29 mmol/L (22-32); Calcium 9.3 mg/dL (8.6-10.3); Chloride 101 mmol/L (101-111); Cholesterol 171 mg/dL; EGFR African American 108.8 (>60); EGFR Non-African American 89.9 (>60); Globulin 2.8 g/dL (2-4); Glucose 160 mg/dL (70-100); HDL Cholesterol 44.5 mg/dL; LDL Cholesterol 98 mg/dL; Sodium 137 mmol/L (135-145); Total Protein 6.9 g/dL (6.4-8.9); Triglycerides 144 mg/dL
[2020-10-21 06:22] LABS: Anion Gap 7 mmol/L (2-11)
[2020-10-21 06:56] LABS: Potassium Redraw 3.8 mmol/L (3.5-5.0)
[2020-10-21] MEDS ORDERED: Insulin GLARGINE 100 un/ml 10 ml VIAL SUBCUT SCH (09:00)
[2020-10-21 10:07] VITALS: BP 141/67
== END 2020-10-21 11:45 | disposition home or self-care (01) ==
LOC: CHICATH 08:28 → ICU 11:03 → INTOOBSV 11:03

== ENCOUNTER 2021-01-14 10:36 | Observation (INO) ==
[2021-01-14] MEDS ORDERED: VERAPAMIL 2.5 MG/ML 2 ML VIAL ** 5 mg/2 ml ONE (11:42)
[2021-01-14] MEDS ORDERED: Midazolam 5 mg/5 ml VIAL 1 mg/ml 5 ml VIAL (5 mg) ONE (11:42)
[2021-01-14] MEDS ORDERED: fentaNYL 100 mcg/2 ml 50 MCG/ML VIAL ONE (11:42)
[2021-01-14] MEDS ORDERED: Heparin 1,000 UNIT/ML 10 ml (10,000 UNITS) CATHLAB/DIALYSIS ONE (11:42)
[2021-01-14] MEDS ORDERED: Iohexol 350 (CONTRAST) 200 ML MDV IV ONE (11:43)
[2021-01-14] MEDS ORDERED: nitroGLYCERIN DRIP 25,000 MCG/250 ML BTL ONE (11:43)
[2021-01-14] MEDS ORDERED: Lidocaine 1% VIAL 10 MG/ML VIAL ONE (11:43)
[2021-01-14] MEDS ORDERED: Heparin 2 UNITS/ML 1000 mls 2,000 ML IV ONE (11:43)
[2021-01-14 12:27] LABS: ABS Eosinophils 0.1 10^3/ul (0-0.6); ABS Lymphocytes 1.3 10^3/ul (1.0-4.8); ABS Monocytes 0.7 10^3/ul (0-0.8); ABS Neutrophils 4.3 10^3/ul (1.5-7.7); Hematocrit 38 % (42-52); Hemoglobin 13.1 g/dL (14.0-18.0); Lymphocyte % 19.6 %; Mean Corpuscular HGB Conc 35 g/dL (31-36); Mean Corpuscular Hemoglobin 33 pg (27-31); Mean Corpuscular Volume 95 fL (80-94); Mean Platelet Volume 8.7 fL (7.4-10.4); Nucleated Red Blood Cells % 0.1; Platelet Count 193 10^3/uL (150-450); Red Blood Count 3.99 10^6 /uL (4.18-5.48); Red Cell Distribution Width 13 % (10-15); White Blood Count 6.4 10^3/uL (3.5-10.8)
[2021-01-14] MEDS ORDERED: Bivalirudin 250 MG VIAL ONE ×2 (12:30→13:34)
[2021-01-14 12:37] LABS: INR 1.13 (0.86-1.15)
[2021-01-14 12:41] LABS: Albumin 4.3 g/dL (3.2-5.2); Albumin/Globulin Ratio 1.9 (1-3); Calcium 9.4 mg/dL (8.6-10.3); EGFR African American 101.6 (>60); EGFR Non-African American 83.9 (>60); Globulin 2.3 g/dL (2-4); Potassium 4.3 mmol/L (3.5-5.0); Total Bilirubin 0.6 mg/dL (0.2-1.0); Total Protein 6.6 g/dL (6.4-8.9)
[2021-01-14] MEDS ORDERED: NS 0.9% 1000 ml BAG 1,000 ML IV SCH (14:00)
[2021-01-14 14:43] LABS: Magnesium 1.9 mg/dL (1.9-2.7)
[2021-01-14] MEDS ORDERED: Dextrose 50% Syringe 50 ml 25 GM/50 ML SYRINGE IV PUSH PRN (15:30)
[2021-01-15 05:15] LABS: ABS Basophils 0.1 10^3/ul (0-0.2); ABS Eosinophils 0.1 10^3/ul (0-0.6); ABS Lymphocytes 2.1 10^3/ul (1.0-4.8); ABS Neutrophils 5.5 10^3/ul (1.5-7.7); Eosinophil % 1.4 %; Hematocrit 38 % (42-52); Hemoglobin 13.2 g/dL (14.0-18.0); Lymphocyte % 23.7 %; Mean Corpuscular HGB Conc 35 g/dL (31-36); Mean Corpuscular Hemoglobin 33 pg (27-31); Mean Corpuscular Volume 94 fL (80-94); Mean Platelet Volume 8.5 fL (7.4-10.4); Platelet Count 188 10^3/uL (150-450); Red Blood Count 4.04 10^6 /uL (4.18-5.48); Red Cell Distribution Width 13 % (10-15); White Blood Count 8.7 10^3/uL (3.5-10.8)
[2021-01-15 05:31] LABS: Calcium 8.8 mg/dL (8.6-10.3); EGFR African American 108.8 (>60); EGFR Non-African American 89.9 (>60); Magnesium 1.9 mg/dL (1.9-2.7); Phosphorus 3.4 mg/dL (2.5-5.0); Potassium 4.3 mmol/L (3.5-5.0)
[2021-01-15] MEDS ORDERED: Insulin GLARGINE 100 un/ml 10 ml VIAL SUBCUT SCH (09:00)
[2021-01-15] MEDS ORDERED: Psyllium PAK PO SCH (09:00)
[2021-01-15 10:40] VITALS: BP 127/68
== END 2021-01-15 11:30 | disposition home or self-care (01) ==
LOC: CHICATH 10:36 → ICU 10:36

== ENCOUNTER 2021-07-18 09:30 | Inpatient (IN) ==
[2021-07-18 10:19] LABS: ABS Eosinophils 0.1 10^3/ul (0-0.6); ABS Lymphocytes 1.3 10^3/ul (1.0-4.8); ABS Monocytes 0.6 10^3/ul (0-0.8); ABS Neutrophils 4.6 10^3/ul (1.5-7.7); Eosinophil % 1.3 %; Hematocrit 37 % (42-52); Hemoglobin 12.6 g/dL (14.0-18.0); Lymphocyte % 19.7 %; Mean Corpuscular HGB Conc 34 g/dL (31-36); Mean Corpuscular Hemoglobin 32 pg (27-31); Mean Corpuscular Volume 93 fL (80-94); Mean Platelet Volume 9.3 fL (7.4-10.4); Platelet Count 203 10^3/uL (150-450); Red Blood Count 4.01 10^6 /uL (4.18-5.48); Red Cell Distribution Width 15 % (10-15); White Blood Count 6.7 10^3/uL (3.5-10.8)
[2021-07-18 10:22] LABS: INR 1.32 (0.86-1.15)
[2021-07-18 10:42] LABS: Albumin 4.4 g/dL (3.2-5.2); CO2 Carbon Dioxide 24 mmol/L (22-32); Calcium 9.5 mg/dL (8.6-10.3); Chloride 101 mmol/L (101-111); Sodium 133 mmol/L (135-145)
[2021-07-18 10:48] LABS: ALT 26 U/L (7-52); Albumin/Globulin Ratio 1.5 (1-3); Alkaline Phosphatase 65 U/L (35-149); Blood Urea Nitrogen 14 mg/dL (6-24); Glucose 190 mg/dL (70-100); Total Protein 7.4 g/dL (6.4-8.9); eGFR CKD-EPI 65.6 (>60)
[2021-07-18 10:54] LABS: Anion Gap 8 mmol/L (2-11); Troponin I 0.03 ng/mL (<0.03)
[2021-07-18 13:10] LABS: AST Redraw 26 U/L (13-39); Potassium Redraw 4.3 mmol/L (3.5-5.0)
[2021-07-18] MEDS ORDERED: Polyethylene Glycol 3350 17 GM PACKET PO PRN (14:03)
[2021-07-18] MEDS ORDERED: Dextrose 50% Syringe 50 ml 25 GM/50 ML SYRINGE IV PUSH PRN (14:44)
[2021-07-18] MEDS ORDERED: Nitroglycerin 0.3 mg TAB SL PRN (14:59)
[2021-07-18 15:43] LABS: Cholesterol 172 mg/dL; HDL Cholesterol 53.3 mg/dL; LDL Cholesterol 97 mg/dL; Triglycerides 111 mg/dL
[2021-07-18 16:01] LABS: Rapid COVID-19 Molecular Undetected (Undetected)
[2021-07-18] MEDS ORDERED: Perflutren Lipid Microsphere 3 ML VIAL ONE (16:32)
[2021-07-18] MEDS ORDERED: Heparin DRIP 25,000 UNITS BAG 25,000 UNITS/500 ML BAG IV SCH (17:45)
[2021-07-18] MEDS ORDERED: Heparin 5000 UNITS/ML 1 mL VIAL IV SCH (18:00)
[2021-07-18 18:01] LABS: Troponin I 1.24 ng/mL (<0.03)
[2021-07-18 18:53] LABS: ABS Basophils 0.1 10^3/ul (0-0.2); ABS Eosinophils 0.1 10^3/ul (0-0.6); ABS Lymphocytes 1.9 10^3/ul (1.0-4.8); ABS Monocytes 0.7 10^3/ul (0-0.8); Eosinophil % 1.9 %; Hematocrit 36 % (42-52); Hemoglobin 12.6 g/dL (14.0-18.0); Lymphocyte % 28.4 %; Mean Corpuscular HGB Conc 35 g/dL (31-36); Mean Corpuscular Hemoglobin 32 pg (27-31); Mean Corpuscular Volume 93 fL (80-94); Platelet Count 197 10^3/uL (150-450); Red Cell Distribution Width 15 % (10-15); White Blood Count 6.7 10^3/uL (3.5-10.8)
[2021-07-18 19:09] LABS: eGFR CKD-EPI 57.8 (>60)
[2021-07-18 19:16] LABS: Troponin I 1.38 ng/mL (<0.03)
[2021-07-18] MEDS: Insulin GLARGINE 100 un/ml 10 ml VIAL SUBCUT SCH (21:00)
[2021-07-18] MEDS: Sulfamethox/Trimethoprim DS TAB 800/160 mg PO SCH (21:12)
[2021-07-18 22:27] LABS: Troponin I 1.25 ng/mL (<0.03)
[2021-07-19] MEDS ORDERED: Insulin GLARGINE 100 un/ml 10 ml VIAL SUBCUT SCH (09:00)
[2021-07-19] MEDS: CMCS: Alfuzosin ER 10 mg TAB.ER (NF) 10 MG TAB.ER PO SCH ×2 (09:01→21:21)
[2021-07-19] MEDS: Sulfamethox/Trimethoprim DS TAB 800/160 mg PO SCH ×2 (09:02→21:21)
[2021-07-19 09:08] LABS: ABS Basophils 0.1 10^3/ul (0-0.2); ABS Eosinophils 0.1 10^3/ul (0-0.6); ABS Lymphocytes 1.8 10^3/ul (1.0-4.8); ABS Monocytes 0.7 10^3/ul (0-0.8); ABS Neutrophils 4.3 10^3/ul (1.5-7.7); Hematocrit 39 % (42-52); Hemoglobin 13.1 g/dL (14.0-18.0); Lymphocyte % 25.8 %; Mean Corpuscular HGB Conc 33 g/dL (31-36); Mean Corpuscular Hemoglobin 31 pg (27-31); Mean Corpuscular Volume 93 fL (80-94); Mean Platelet Volume 8.8 fL (7.4-10.4); Platelet Count 207 10^3/uL (150-450); Red Blood Count 4.23 10^6 /uL (4.18-5.48); Red Cell Distribution Width 15 % (10-15); White Blood Count 7.1 10^3/uL (3.5-10.8)
[2021-07-19 09:32] LABS: Anion Gap 8 mmol/L (2-11); Blood Urea Nitrogen 12 mg/dL (6-24); CO2 Carbon Dioxide 28 mmol/L (22-32); Calcium 9.7 mg/dL (8.6-10.3); Chloride 102 mmol/L (101-111); Glucose 103 mg/dL (70-100); Potassium 4.1 mmol/L (3.5-5.0); Sodium 138 mmol/L (135-145); eGFR CKD-EPI 63.5 (>60)
[2021-07-19 09:54] LABS: Troponin I 1.31 ng/mL (<0.03)
[2021-07-19] MEDS ORDERED: D5LR 1000 ml BAG 1,000 ML IV SCH (11:00)
[2021-07-19] MEDS ORDERED: Regadenoson 0.4 MG/5 ML SYRINGE ONE (11:16)
[2021-07-19] MEDS: Nitroglycerin 0.2 mg/hr PATCH (5 mg) TRANSDERM SCH (16:41)
[2021-07-19] MEDS ORDERED: Dextrose 50% Syringe 50 ml 25 GM/50 ML SYRINGE IV PUSH PRN (20:53)
[2021-07-19] MEDS ORDERED: Nitro Patch Removal Reminder PATCH OFF SCH (21:00)
[2021-07-19] MEDS: Insulin GLARGINE 100 un/ml 10 ml VIAL SUBCUT SCH (21:21)
[2021-07-20 07:01] LABS: ABS Eosinophils 0.1 10^3/ul (0-0.6); ABS Lymphocytes 1.9 10^3/ul (1.0-4.8); ABS Monocytes 0.8 10^3/ul (0-0.8); Eosinophil % 2.5 %; Hematocrit 36 % (42-52); Hemoglobin 12.2 g/dL (14.0-18.0); Lymphocyte % 32.1 %; Mean Corpuscular HGB Conc 34 g/dL (31-36); Mean Corpuscular Hemoglobin 31 pg (27-31); Mean Corpuscular Volume 93 fL (80-94); Mean Platelet Volume 8.9 fL (7.4-10.4); Platelet Count 189 10^3/uL (150-450); Red Blood Count 3.89 10^6 /uL (4.18-5.48); Red Cell Distribution Width 15 % (10-15); White Blood Count 5.9 10^3/uL (3.5-10.8)
[2021-07-20 07:40] LABS: Calcium 9.2 mg/dL (8.6-10.3); Potassium 4.3 mmol/L (3.5-5.0); eGFR CKD-EPI 64.9 (>60)
[2021-07-20] MEDS: Sulfamethox/Trimethoprim DS TAB 800/160 mg PO SCH (09:12)
[2021-07-20] MEDS: Nitroglycerin 0.2 mg/hr PATCH (5 mg) TRANSDERM SCH (09:16)
[2021-07-20] MEDS ORDERED: Psyllium PAK PO SCH (10:00)
[2021-07-20] MEDS: CMCS: Alfuzosin ER 10 mg TAB.ER (NF) 10 MG TAB.ER PO SCH (10:46)
[2021-07-20 12:54] VITALS: BP 119/64
[2021-07-21] MEDS ORDERED: NS 0.9% 1000 ml BAG 1,000 ML IV SCH (11:00)
[2021-07-21] MEDS ORDERED: Clindamycin 900 MG/D5W BAG 900 MG/50 ML BAG IVPB ONE (11:00)
== END 2021-07-20 15:30 | disposition home or self-care (01) | DRG 281 ==
LOC: EDHOLD 09:30 → ED 09:30 → MEDTELE 16:57
PROVIDERS: ADMIT Physician Assistant; ATTEND Internal Medicine

== ENCOUNTER 2021-11-16 16:05 | Inpatient (IN) ==
[2021-11-16] MEDS ORDERED: fentaNYL 100 mcg/2 ml 50 MCG/ML VIAL IV SLOW PU PRN ×3 (16:34→22:01)
[2021-11-16] MEDS ORDERED: fentaNYL 100 mcg/2 ml 50 MCG/ML VIAL IV SLOW PU ONE ×2 (18:09→19:59)
[2021-11-16 20:43] LABS: ABS Basophils 0.1 10^3/ul (0-0.2); ABS Lymphocytes 1.2 10^3/ul (1.0-4.8); ABS Monocytes 0.8 10^3/ul (0-0.8); Eosinophil % 0.1 %; Hematocrit 35 % (42-52); Hemoglobin 11.6 g/dL (14.0-18.0); Lymphocyte % 8.7 %; Mean Corpuscular HGB Conc 33 g/dL (31-36); Mean Corpuscular Hemoglobin 29 pg (27-31); Mean Corpuscular Volume 88 fL (80-94); Mean Platelet Volume 8.5 fL (7.4-10.4); Platelet Count 228 10^3/uL (150-450); Red Cell Distribution Width 15 % (10-15); White Blood Count 14.1 10^3/uL (3.5-10.8)
[2021-11-16 20:49] LABS: INR 1.16 (0.86-1.15)
[2021-11-16 21:07] LABS: Albumin 4.3 g/dL (3.2-5.2); Albumin/Globulin Ratio 1.5 (1-3); Calcium 9.3 mg/dL (8.6-10.3); Globulin 2.9 g/dL (2-4); Potassium 4.7 mmol/L (3.5-5.0); Total Bilirubin 0.5 mg/dL (0.2-1.0); Total Protein 7.2 g/dL (6.4-8.9); eGFR CKD-EPI 81.9 (>60)
[2021-11-16] MEDS ORDERED: Ondansetron 4 mg VIAL 2 MG/ML 2 ml VIAL IV PRN (21:58)
[2021-11-16] MEDS ORDERED: Dextrose 50% Syringe 50 ml 25 GM/50 ML SYRINGE IV PUSH PRN (22:02)
[2021-11-16] MEDS: Insulin GLARGINE 100 un/ml 10 ml VIAL SUBCUT SCH ×2 (22:26→22:28)
[2021-11-16] MEDS: CMCS:Alfuzosin ER 10 mg TAB.ER (NF) 10 MG TAB.ER PO SCH (23:55)
[2021-11-17] MEDS ORDERED: HYDROmorphone 0.5 MG/0.5 ML SYRINGE IV ONE (00:03)
[2021-11-17 02:06] LABS: Urine Appearance Clear; Urine Bilirubin Negative (Negative); Urine Blood Negative (Negative); Urine Color Straw; Urine Glucose 2+(150 mg/dL) (Negative); Urine Ketones Negative (Negative); Urine Nitrite Negative (Negative); Urine Protein Negative (Negative); Urine Specific Gravity 1.005 (1.002-1.030); Urine Urobilinogen Negative (Negative)
[2021-11-17] MEDS ORDERED: HYDROmorphone 1 MG/1 ML SYRINGE ONE (02:12)
[2021-11-17] MEDS: HYDROmorphone 1 MG/1 ML SYRINGE IV SLOW PU PRN ×2 (02:16→08:23)
[2021-11-17 06:15] LABS: Hematocrit 31 % (42-52); Hemoglobin 10.2 g/dL (14.0-18.0); Mean Corpuscular HGB Conc 33 g/dL (31-36); Mean Corpuscular Hemoglobin 29 pg (27-31); Mean Corpuscular Volume 89 fL (80-94); Mean Platelet Volume 8.7 fL (7.4-10.4); Platelet Count 203 10^3/uL (150-450); Red Blood Count 3.53 10^6 /uL (4.18-5.48); Red Cell Distribution Width 15 % (10-15); White Blood Count 11.2 10^3/uL (3.5-10.8)
[2021-11-17] MEDS ORDERED: Multivitamins/Minera Areds(NF) CAP PO SCH (07:00)
[2021-11-17] MEDS ORDERED: Isosorbide Mononit ER 30mg TAB PO SCH (09:00)
[2021-11-17] MEDS ORDERED: Calcium/Vitamin D TAB 250/125 TAB PO SCH (09:00)
[2021-11-17] MEDS ORDERED: Psyllium PAK PO SCH (09:00)
[2021-11-17] MEDS ORDERED: Multivitamins/Minerals TAB PO SCH (09:00)
[2021-11-17] MEDS ORDERED: Polyethylene Glycol 3350 17 GM PACKET PO SCH (09:00)
[2021-11-17] MEDS ORDERED: Lidocaine 1% VIAL 10 MG/ML VIAL INJ ONE (10:19)
[2021-11-17] MEDS ORDERED: Lidocaine 1% MPF 5 ML VIAL ONE (10:20)
[2021-11-17] MEDS: Insulin GLARGINE 100 un/ml 10 ml VIAL SUBCUT SCH (16:49)
[2021-11-17] MEDS: MINERA AREDS PO SCH (17:21)
[2021-11-17] MEDS: MULTIVITAMINS PO SCH (17:21)
[2021-11-17] MEDS: CMCS:Alfuzosin ER 10 mg TAB.ER (NF) 10 MG TAB.ER PO SCH (17:21)
[2021-11-17 17:34] LABS: High Sensitivity Troponin 1 Hr 15 pg/mL (<20)
[2021-11-18 07:28] VITALS: BP 157/52
[2021-11-18] MEDS: MINERA AREDS PO SCH (07:48)
[2021-11-18] MEDS: MULTIVITAMINS PO SCH (07:48)
== END 2021-11-18 07:45 | disposition short-term general hospital (02) | DRG 563 ==
LOC: ED 16:05 → SUATTDRO 21:58 → EDHOLD 21:58 → MEDTELE 11-17 12:11
PROVIDERS: ADMIT Hospitalist; ATTEND Internal Medicine